=== PATIENT | male | born 1960 | race Two or more races ===

== ENCOUNTER 2020-12-10 19:51 | Emergency (ER) | payer SELFPAY ==
[~2020-12-10] VITALS: Ht 180.3 cm; Wt 117.9 kg
[2020-12-10] MEDS ORDERED: cloNIDine HCL 0.1 MG TAB PO ONE (20:00)
[2020-12-10 23:03] VITALS: BP 151/76
== END 2020-12-10 23:07 | disposition home or self-care (01) ==
LOC: ER 19:51
DX: M19.171 Post-traumatic osteoarthritis, right ankle and foot (principal); I10 Essential (primary) hypertension; M1A.3410 Chronic gout due to renal impairment, right hand, without tophus (tophi); I87.2 Venous insufficiency (chronic) (peripheral); F12.10 Cannabis abuse, uncomplicated
CPT/HCPCS: 73120; 73630

== ENCOUNTER 2024-08-06 13:20 | Inpatient (IN) | payer MEDICAID, OTHER ==
[~2024-08-06] VITALS: Ht 167.6 cm; Wt 113.1 kg
--- NOTE | 2024-08-06 13:37 | ED.PDOC ---
History of Present Illness HPI Comments 64-year-old male with no reported PMHx presents with a chief complaint of confusion, forgetfulness, and slurred speech for the past x 2 days. Patients daughter reports that patient has been having neurological issues for the past x 2 days. Denies any head injuries or trauma recently. Patient and daughter are poor historians and report no past medical history. Patient is hard to understand secondary to the slurred speech. Time Seen by MD: 13:31 Primary Care Provider: NONE Reviewed Notes: Nurses Notes, Medications, Allergies Allergies: Coded Allergies: NO KNOWN ALLERGIES (Unverified , 12/10/20) Information Source: Patient, Relative (Child) Mode of Arrival: Ambulatory Severity: Moderate Timing: Days Duration: Since onset Prehospital treatment: None Past Medical History PAST MEDICAL HISTORY: Denies Surgical History: Denies all surgeries Family History Family History: Unknown Social History Smoker: Non-Smoker Alcohol: Heavy Drugs: Marijuana Lives In: Home Constitutional: denies: chills, diaphoresis, fatigue, fever, malaise, sweats, weakness, others EENTM: denies: blurred vision, double vision, ear bleeding, ear discharge, ear drainage, ear pain, ear ringing, eye pain, eye redness, hearing loss, mouth pain, mouth swelling, nasal discharge, nose bleeding, nose congestion, nose pain, photophobia, tearing, throat pain, throat swelling, voice changes, others Respiratory: denies: cough, hemoptysis, orthopnea, SOB at rest, shortness of breath, SOB with excertion, stridor, wheezing, others Cardiovascular: denies: chest pain, dizzy spells, diaphoresis, Dyspnea on exertion, edema, irregular heart beat, left arm pain, lightheadedness, palpitations, PND, syncope, others Gastrointestinal: denies: abdomen distended, abdominal pain, blood streaked bowels, constipated, diarrhea, dysphagia, difficulty swallowing, hematemesis, melena, nausea, poor appetite, poor fluid intake, rectal bleeding, rectal pain, vomiting, others Genitourinary: denies: burning, dysuria, flank pain, frequency, hematuria, incontinence, penile discharge, penile sore, pain, testicle pain, testicle swelling, urgency, others Neurological: reports: speech problems (SLURRED SPEECH), others (CONFUSION; FORGETFULLNESS); denies: dizziness, fainting, headache, left sided numbness, left sided weakness, numbness, paresthesia, pre-existing deficit, right sided numbness, right sided weakness, seizure, tingling, tremors, weakness Musculoskeletal: denies: back pain, gout, joint pain, joint swelling, muscle pain, muscle stiffness, neck pain, others Integumetry: denies: bruises, change in color, change in hair/nails, dryness, laceration, lesions, lumps, rash, wounds, others Allergic/Immunocompromised: denies: Difficulty Healing, Frequent Infections, Hives, Itching, others Hematologic/Lymphatic: denies: anemia, blood clots, easy bleeding, easy bruising, swollen glands, others Endocrine: denies: excessive hunger, excessive sweating, excessive thirst, excessive urination, flushing, intolerance to cold, intolerance to heat, unexplained weight gain, unexplained weight loss, others Psychiatric: denies: anxiety, bipolar disorder, depression, hopeless, panic disorder, schizophrenia, sleepless, suicidal, others All Other Systems: Reviewed and Negative Physical Exam General Appearance: Moderate Distress HEENT: Normal ENT Inspection, Pharynx Normal, TMs Normal Neck: Full Range of Motion, Non-Tender, Normal, Normal Inspection Respiratory: Chest Non-Tender, Lungs Clear, No Accessory Muscle Use, No Respiratory Distress, Normal Breath Sounds Cardiovascular: No Edema, No JVD, No Murmur, No Gallop, Normal Peripheral Pulses, Regular Rate/Rhythm Breast Exam: Deferred Gastrointestinal: No Organomegaly, Non Tender, No Pulsatile Mass, Normal Bowel Sounds, Soft Genitalia: Deferred Pelvic: Deferred Rectal: Deferred Extremities: No calf tenderness, Normal capillary refill, No pedal edema Musculoskeletal : Apperance: Normal Neurologic: Alert, 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 Was a procedure done?: No EKG EKG : Pulse Rate (adult): 77 Anthon: Normal Hypertrophy: LAE, LVH Differential Dx Considerations may include: Hepatic encephalopathy, CVA, generalized weakness, electrolyte imbalance X-Ray, Labs, Meds, VS Vital Signs Date Time Temp Pulse Resp B/P (MAP) Pulse Ox O2 Delivery O2 Flow Rate FiO2 08/06/24 14:43 98.9 74 16 148/91 (110) 95 Lab Test 08/06/24 14:11 08/06/24 13:47 Range/Units White Blood Count 7.9 4.4-10.8 10^3/uL Red Blood Count 4.79 4.5-5.90 10^6/uL Hemoglobin 15.5 13.5-17.5 g/dL Hematocrit 45.2 41.0-53.0 % Mean Corpuscular Volume 94.4 80.0-100.0 fL Mean Corpuscular Hemoglobin 32.4 H 28.0-32.0 pg Mean Corpuscular Hemoglobin Concent 34.4 32.0-36.0 g/dL Red Cell Distribution Width 13.7 11.8-14.3 % Platelet Count 209 140-450 10^3/uL Mean Platelet Volume 8.7 6.9-10.8 fL Neutrophils (%) (Auto) 69.2 37.0-80.0 % Lymphocytes (%) (Auto) 17.6 10.0-50.0 % Monocytes (%) (Auto) 9.4 0.0-12.0 % Eosinophils (%) (Auto) 2.9 0.0-7.0 % Basophils (%) (Auto) 0.9 0.0-2.0 % Neutrophils # (Auto) 5.5 1.6-8.6 10 ^3/uL Lymphocytes # (Auto) 1.4 0.4-5.4 10 ^3/uL Monocytes # (Auto) 0.7 0-1.3 10 ^3/uL Eosinophils # (Auto) 0.2 0-0.8 10 ^3/uL Basophils # (Auto) 0.1 0-0.2 10 ^3/uL Nucleated Red Blood Cells 0.1 % Prothrombin Time 11.6 9.3-11.8 sec Prothrombin Time INR 1.11 0.9-1.15 Activated Partial Thromboplast Time 27.8 24.5-34.5 SEC Sodium Level 141 136-145 mmol/L Potassium Level 3.9 3.5-5.1 mmol/L Chloride Level 107 98-107 mmol/L Carbon Dioxide Level 25 20-31 mmol/L Anion Gap 9 5-15 Blood Urea Nitrogen 28 H 9-23 mg/dL Creatinine 1.93 H 0.700-1.30 mg/dL Glomerular Filtration Rate Calc 39 >90 mL/min BUN/Creatinine Ratio 14.5 10.0-20.0 Serum Glucose 115 H 74-106 mg/dL Calcium Level 9.4 8.7-10.4 mg/dL Total Bilirubin 0.8 0.2-1.0 mg/dL Aspartate Amino Transferase (AST) 46 H 13-40 U/L Alanine Aminotransferase (ALT) 30 7-40 U/L Alkaline Phosphatase 88 46-116 U/L Ammonia 35 H 11-32 umol/L Total Protein 7.6 5.7-8.2 g/dL Albumin 4.3 3.2-4.8 g/dL Plasma/Serum Blood Alcohol 3.8 <10 mg/dL POC Glucose 122 H 70-106 mg/dl Abdomen/Pelvis CT Scan Impression: 1. Subtle heterogeneous hypodense nodular area in the posterior right hepatic lobe measuring 5.2 cm. A hepatic lesion is not excluded. Further evaluation with multiphase CT or MRI abdomen with contrast is recommended. 2. Distal colon diverticulosis. 3. Prostatomegaly. Poorly filled bladder demonstrates circumferential wall thickening likely related to chronic outlet obstruction. 4. Fat containing umbilical hernia. The patient was ammonia level is elevated at 35. The CBC is within normal limits The chemistry panel is within normal limits At this time, the patient was being admitted to the hospitalist The patient was diagnosis is hepatic encephalopathy Images Reviewed?: Images reviewed and evaluated by me Time of 1ST Reevaluation: 14:01 Reevaluation 1ST: Unchanged Patient Education/Counseling: Diagnosis, Treatment, Prognosis Family Education/Counseling: Diagnosis, Treatment, Prognosis Departure 1 Departure Time of Disposition: 15:19 Impression: Primary Impression: Hepatic encephalopathy Additional Impression: Acute abdominal pain Disposition: 09 ADMITTED INPATIENT Admit to: [facility] Condition: Fair Critical Care Note Critical Care Time?: Yes (35 min-critical care time only) Stability Stability form required: Yes Unstable for transfer: Telemetry monitoring (Telemetry monitoring required), ED Physician Assesment (Clinical assesment) Heart Score Heart Score: Heart Score Response (Comments) Value History N/A 0 EKG N/A 0 Age N/A 0 Risk Factors N/A 0 Troponin N/A 0 Total 0 I personally scribed for JENNIFER DOLAN MD ([email or web address]) on 08/06/24 at 13:37. Electronically submitted by Fred Martines ([email or web address]). I personally scribed for JENNIFER DOLAN MD ([email or web address]) on 08/06/24 at 14:27. Electronically submitted by Fred Martines ([email or web address]). JENNIFER DOLAN MD Aug 06, 2024 13:37
--- NOTE | 2024-08-06 14:25 | DVH ---
CT ABDOMEN AND PELVIS WITHOUT CONTRAST CLINICAL HISTORY: aloc TECHNIQUE: Multiple contiguous axial images of the abdomen and pelvis without intravenous contrast. The images were reformatted degenerate coronal and sagittal reconstructions. All CT scans at this medical facility are performed using dose modulation techniques as appropriate t o a performed exam including the following:Automated exposure control was utilized; adjustment of the MA and/or KV according to patient size; and use of iterative reconstruction technique. Radiation Dose Information: CT Dose: CTDI volume is 26 mGy. Dose-length product is 1469 mGy*cm Comparison: None FINDINGS: Evaluation of the abdomen and pelvis is limited without intravenous contrast. There is a subtle heterogeneous hypodense nodular area in the posterior right hepatic lobe measuring 5.2 cm ( axial image 22). A hepatic lesion is not excluded. The gallbladder, pancreas, kidneys, adrenal glands, and spleen appear within normal limits. There is a fat containing umbilical hernia with a neck measuring 3.3 cm in transverse diameter. There is no gross evidence of abdominal lymphadenopathy. There is no free fluid or free air. The stomach grossly appears unremarkable. The small and large bowel loops demonstrate normal caliber . There are scattered diverticula in the distal colon without evidence of acute diverticulitis. The abdominal aorta and IVC appear within normal limits. The prostate gland appears prominent in size. Bladder is poorly filled and demonstrates circumferenti al wall thickening likely related to chronic outlet obstruction.. There is no gross evidence of a pe lvic mass. There is no free fluid collection. Lung bases are clear. There is no acute osseous abnormality. IMPRESSION: 1. Subtle heterogeneous hypodense nodular area in the posterior right hepatic lobe measuring 5.2 cm. A hepatic lesion is not excluded. Further evaluation with multiphase CT or MRI abdomen with contras t is recommended. 2. Distal colon diverticulosis. 3. Prostatomegaly. Poorly filled bladder demonstrates circumferential wall thickening likely related to chronic outlet obstruction. 4. Fat containing umbilical hernia. HS:Y
[2024-08-06 14:41] LABS: Basophils # (auto) 0.1 10 ^3/uL (0-0.2); Basophils % (auto) 0.9 % (0.0-2.0); Eosinophils # (auto) 0.2 10 ^3/uL (0-0.8); Eosinophils % (auto) 2.9 % (0.0-7.0); Hematocrit 45.2 % (41.0-53.0); Hemoglobin 15.5 g/dL (13.5-17.5); Lymphocytes # (auto) 1.4 10 ^3/uL (0.4-5.4); Lymphocytes % (auto) 17.6 % (10.0-50.0); Mean Corpuscular Hemoglobin 32.4 pg (28.0-32.0); Mean Corpuscular Hgb Conc. 34.4 g/dL (32.0-36.0); Mean Corpuscular Volume 94.4 fL (80.0-100.0); Monocytes # (auto) 0.7 10 ^3/uL (0-1.3); Monocytes % (auto) 9.4 % (0.0-12.0); Neutrophils # (auto) 5.5 10 ^3/uL (1.6-8.6); Neutrophils % (auto) 69.2 % (37.0-80.0); Nucleated Red Blood Cells % 0.1 %; Platelet Count (auto) 209 10^3/uL (140-450); Red Blood Cells 4.79 10^6/uL (4.5-5.90); Red Cell Distribution Width 13.7 % (11.8-14.3); White Blood Cell 7.9 10^3/uL (4.4-10.8)
[2024-08-06 14:50] LABS: Alanine Aminotransferase 30 U/L (7-40); Albumin 4.3 g/dL (3.2-4.8); Alkaline Phosphatase 88 U/L (46-116); Anion Gap 9 (5-15); BUN/Creatinine Ratio 14.5 (10.0-20.0); Blood Alcohol 3.8 mg/dL (<10); Calcium 9.4 mg/dL (8.7-10.4); Carbon Dioxide 25 mmol/L (20-31); Potassium 3.9 mmol/L (3.5-5.1); Sodium 141 mmol/L (136-145)
[2024-08-06 14:51] LABS: Bilirubin, Total 0.8 mg/dL (0.2-1.0); Total Protein 7.6 g/dL (5.7-8.2)
[2024-08-06 14:53] LABS: Aspartate Aminotransferase 46 U/L (13-40); Blood Urea Nitrogen 28 mg/dL (9-23); Chloride 107 mmol/L (98-107); Glucose 115 mg/dL (74-106)
[2024-08-06 15:13] LABS: INR 1.11 (0.9-1.15); Partial Thromboplastin Time 27.8 SEC (24.5-34.5); Prothrombin Time 11.6 sec (9.3-11.8)
--- NOTE | 2024-08-06 15:37 | ECG ---
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
[2024-08-06 20:43] LABS: Cannabinoid Screen, Urine Pos (NEGATIVE)
[2024-08-06 20:44] LABS: Amphetamine Screen, Urine Neg (NEGATIVE); Barbiturate Scree,Urine Neg (NEGATIVE); Benzodiazephine Screen, Urine Neg (NEGATIVE); Cocaine Screen, Urine Neg (NEGATIVE); Opiate Scree,Urine Neg (NEGATIVE); Phencyclidine Screen, Urine Neg (NEGATIVE)
--- NOTE | 2024-08-06 23:28 | DVHHPRES ---
History of Present Illness Resident Creating Document: HIPOLITO LY RESDIENT History of Present Illness This is a 62-year-old male with past medical history of gout, hypertension came to the hospital due to confusion and slurred speech since 2 days. He also reports right leg pain, blurry vision, and hearing voice of his departed brother. 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 He also complained of auditory hallucination (hears departed bothers speak) and hard time finding words. Pat ient denies fever, nausea, vomiting, chest pain, shortness of breath, any recent injury or trauma, or any motor or sensory deficits. PMHx: Gout and hypertension Social history: Denies smoking, heavy alcohol use disorder, denies any other drug use Home medication: Ibuprofen for the knee pain Allergic history: No known allergies Review of Systems Review of Systems General: patient denies fever, fatigue, weaknes, sweating, any recent changes in appetite and weight HEENT: No headaches, visiual changes, hearing loss, tinnitus, nasal congestion and discharge, and sore throat. Cardiovascular: Denies chest pain, palpitations, dyspnea on exertion, orthopnea, or claudication. Respiratory: No cough, and wheezing. Gastrointestinal: Denies nausea, vomiting, dysphagia, odynophagia, heartburn, abdominal pain, flatulence, bloating, diarrhea, constipation, change in stool, or blood in stool. Genitourinary: No dysuria, hematuria, discharge, frequency, urgency, nocturia, incontinence, and urinary retention. Endocrine: No heat or cold intolerance, polydipsia, polyuria, and polyphagia. Neurological: No dizziness, extremity weakness and numbness, tremors, gait disturbance, seizures, and memory impairment. Psychiatric: Reports auditory hallucination Musculoskeletal: Reports bilateral lower limb pain more on the right side Skin: No rashes, itching, skin lesion, changes in hair, nail, skin texture and breast. Hematologic/Lymphatic: Denies easy bruising, bleeding tendencies, or lymph node enlargement. Allergies: Coded Allergies: NO KNOWN ALLERGIES (Unverified , 12/10/20) Exam Vital Signs Vital Signs Date Time Temp Pulse Resp B/P (MAP) Pulse Ox O2 Delivery O2 Flow Rate FiO2 08/06/24 18:19 98.4 77 18 151/94 (113) 98 98.4 Exam General Appearance: Alert, confused, oriented to the place and person, disoriented to time HEENT: Atraumatic, PERRLA, EOMI, Mucous membrane moist/pink Respiratory: Clear to auscultation, Normal air movement Cardiovascular: Regular rate, Normal S1, Normal S2, No murmurs, no chest wall tenderness Abdominal: Normal bowel sounds, Soft, No tenderness, No hepatospenomegaly, No masses Extremities: Bilateral pedal edema with right knee swollen and tender to pal pation with decreased range of motion, bilateral 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 Skin: No rashes, No breakdown, No significant lesion Neuro: Normal gait, Normal speech, Strength at 5/5 X4 ext, Normal tone, S ensation intact, Cranial nerves 3-12 NL, Reflexes 2+ Psych/Mental Status: Mental status NL, Mood NL Labs/Xrays Labs Test 08/06/24 17:16 08/06/24 14:11 08/06/24 13:47 Range/Units Urine Opiates Screen Neg NEGATIVE Urine Fentanyl Screen Neg NEGATIVE Urine Barbiturates Screen Neg NEGATIVE Urine Phencyclidine Screen Neg NEGATIVE Urine Amphetamines Screen Neg NEGATIVE Urine Benzodiazepines Screen Neg NEGATIVE Urine Cocaine Screen Neg NEGATIVE Urine Cannabinoids Screen Pos NEGATIVE White Blood Count 7.9 4.4-10.8 10^3/uL Red Blood Count 4.79 4.5-5.90 10^6/uL Hemoglobin 15.5 13.5-17.5 g/dL Hematocrit 45.2 41.0-53.0 % Mean Corpuscular Volume 94.4 80.0-100.0 fL Mean Corpuscular Hemoglobin 32.4 H 28.0-32.0 pg Mean Corpuscular Hemoglobin Concent 34.4 32.0-36.0 g/dL Red Cell Distribution Width 13.7 11.8-14.3 % Platelet Count 209 140-450 10^3/uL Mean Platelet Volume 8.7 6.9-10.8 fL Neutrophils (%) (Auto) 69.2 37.0-80.0 % Lymphocytes (%) (Auto) 17.6 10.0-50.0 % Monocytes (%) (Auto) 9.4 0.0-12.0 % Eosinophils (%) (Auto) 2.9 0.0-7.0 % Basophils (%) (Auto) 0.9 0.0-2.0 % Neutrophils # (Auto) 5.5 1.6-8.6 10 ^3/uL Lymphocytes # (Auto) 1.4 0.4-5.4 10 ^3/uL Monocytes # (Auto) 0.7 0-1.3 10 ^3/uL Eosinophils # (Auto) 0.2 0-0.8 10 ^3/uL Basophils # (Auto) 0.1 0-0.2 10 ^3/uL Nucleated Red Blood Cells 0.1 % Prothrombin Time 11.6 9.3-11.8 sec Prothrombin Time INR 1.11 0.9-1.15 Activated Partial Thromboplast Time 27.8 24.5-34.5 SEC Sodium Level 141 136-145 mmol/L Potassium Level 3.9 3.5-5.1 mmol/L Chloride Level 107 98-107 mmol/L Carbon Dioxide Level 25 20-31 mmol/L Anion Gap 9 5-15 Blood Urea Nitrogen 28 H 9-23 mg/dL Creatinine 1.93 H 0.700-1.30 mg/dL Glomerular Filtration Rate Calc 39 >90 mL/min BUN/Creatinine Ratio 14.5 10.0-20.0 Serum Glucose 115 H 74-106 mg/dL Calcium Level 9.4 8.7-10.4 mg/dL Total Bilirubin 0.8 0.2-1.0 mg/dL Aspartate Amino Transferase (AST) 46 H 13-40 U/L Alanine Aminotransferase (ALT) 30 7-40 U/L Alkaline Phosphatase 88 46-116 U/L Ammonia 35 H 11-32 umol/L Total Protein 7.6 5.7-8.2 g/dL Albumin 4.3 3.2-4.8 g/dL Plasma/Serum Blood Alcohol 3.8 <10 mg/dL POC Glucose 122 H 70-106 mg/dl Assessment/Plan Assessment/Plan Acute metabolic encephalopathy, likely due to ischemic stroke Acute ischemic stroke Head CT scan shows acute or subacute infarct in the left thalamic Check lipid profile, carotid Doppler, and echoecoho Consult neurology Aspirin Lipitor Gout flare-up Colchicine Possible VAL, likely VMN creatinine is raised at 1.93, no baseline available FENa and IV fluid Alcohol use disorder Abdominal CT scan shows subtle heterogeneous hypodense nodular area in right hepatic lobe, 5.2 cm recommended MRI or multiphase CT Umbilical hernia, fat containing, CT finding Distal colon diverticulosis, CT finding History of hypertension Cannabinoids use disorder DIET: Cardiac diet DVT PROPHYLAXIS: Lovenox CODE STATUS: Goal of care discussed for more than 21 minutes, full code DISPOSITION: Telemetry Patient's status and paln discussed with the patient and the patient's the bedside. Case discussed with Dr. Machado. Plan discussed with: Patient, Other (RN) My Orders Orders - HIPOLITO LY RESDIJAMES Procedure Category Date Status Time Admit ADMIT 08/06/24 Verified 23:27 Stat Ekg For Chest YARELIS 08/06/24 Verified Pain 23:27 Notify Md Of Changes [facility] 08/06/24 Verified From Base 23:27 Date of Service: Aug 07, 2024 Billing Provider: MAILE MACHADO MD Common Visit Codes: 78584-[id number] INP/OBS CARE (HIGH) HIPOLITO LY RESDIENT Aug 06, 2024 23:28 MAILE MACHADO MD Aug 10, 2024 14:47
[2024-08-07] MEDS ORDERED: LORazepam 2MG/ML-1ML VIAL IV PRN ×2 (02:45→11:00)
[2024-08-07 03:39] VITALS: PULSE 60; RESP 16; O2SAT 97
[2024-08-07] MEDS: SODIUM CHLORIDE 0.9% 500 ML IV ONE (04:15)
[2024-08-07] MEDS: COLCHICINE 0.6 MG CAP PO ONE (04:15)
[2024-08-07] MEDS: THIAMINE 100mg/ml INJ (200mg/2ml VIAL) IV ONE (04:15)
[2024-08-07] MEDS: FOLIC ACID 1 MG in D5W 5% 50 ML INJ ONE (04:16)
[2024-08-07 04:38] LABS: Basophils # (auto) 0.1 10 ^3/uL (0-0.2); Eosinophils # (auto) 0.3 10 ^3/uL (0-0.8); Eosinophils % (auto) 4.5 % (0.0-7.0); Hematocrit 43.2 % (41.0-53.0); Hemoglobin 15.2 g/dL (13.5-17.5); Lymphocytes # (auto) 1.5 10 ^3/uL (0.4-5.4); Lymphocytes % (auto) 19.1 % (10.0-50.0); Mean Corpuscular Hemoglobin 33.3 pg (28.0-32.0); Mean Corpuscular Hgb Conc. 35.1 g/dL (32.0-36.0); Monocytes # (auto) 0.7 10 ^3/uL (0-1.3); Monocytes % (auto) 9.6 % (0.0-12.0); Neutrophils % (auto) 65.8 % (37.0-80.0); Platelet Count (auto) 216 10^3/uL (140-450); Red Blood Cells 4.55 10^6/uL (4.5-5.90); Red Cell Distribution Width 13.6 % (11.8-14.3); White Blood Cell 7.7 10^3/uL (4.4-10.8)
[2024-08-07 04:46] LABS: Alanine Aminotransferase 28 U/L (7-40); Albumin 4.5 g/dL (3.2-4.8); Alkaline Phosphatase 86 U/L (46-116); Anion Gap 7 (5-15); Aspartate Aminotransferase 37 U/L (13-40); Calcium 9.5 mg/dL (8.7-10.4); Carbon Dioxide 26 mmol/L (20-31); Chloride 103 mmol/L (98-107); Cholesterol 151 mg/dL (< 200); Magnesium 2.3 mg/dL (1.6-2.6); Phosphorus 3.8 mg/dL (2.4-5.1); Sodium 136 mmol/L (136-145); Triglycerides 112 mg/dL (< 150)
[2024-08-07 04:47] LABS: Bilirubin, Total 0.6 mg/dL (0.2-1.0); Total Protein 8.1 g/dL (5.7-8.2)
[2024-08-07 04:59] LABS: Blood Urea Nitrogen 27 mg/dL (9-23); Glucose 110 mg/dL (74-106); HDL Cholesterol 36 mg/dL (40-59); LDL Cholesterol 105 mg/dL (< 100); Potassium 3.4 mmol/L (3.5-5.1)
--- NOTE | 2024-08-07 05:05 | DVH ---
EXAM: CT HEAD WITHOUT CONTRAST INDICATION: ALOC TECHNIQUE: CT of the head without intravenous contrast. Coronal and sagittal reformatted images are submitted. Radiation Dose : 1. Head: CT Dose: CTDI volume is 62.7 mGy. Dose-length product is 1128.5 mGy*cm The dose indicators for CT are the volume Computed Tomography (CT) Dose Index (CTDIvol) and the Dose Length Product (DLP), and are measured in units of mGy and mGy-cm, respectively. These indicators are not patient dose, but values generated from the CT scanner acquisition factors. The report includes radiation exposure data for exposures received during this examination. All CT scans at this medical facility are performed using dose modulation techniques as appropriate to a performed exam including the following: Automated exposure control was utilized; adjustment of the MA and/or KV according to patient size; and use of iterative reconstruction technique. COMPARISON: None FINDINGS: There is no evidence of acute intracranial hemorrhage, extra-axial collection, mass effect, midline s hift, herniation or hydrocephalus. There are periventricular and subcortical hypodensities, nonspecific, but likely reflecting sequelae of chronic microvascular ischemic changes. The ventricles, sulci and cisterns are age appropriate. The walters-white differentiation is intact. There is a hypodensity in the left thalamus. Mastoid air cells are clear. There is opacification of the left maxillary sinus and ethmoid air cells . No depressed calvarial fracture. The surrounding soft tissues are unremarkable. IMPRESSION: 1. Acute or subacute infarct in the left thalamus. 2. No evidence of acute intracranial hemorrhage.
[2024-08-07] MEDS: ASPirin 81 mg TAB PO ONE (05:15)
[2024-08-07] MEDS: ENOXAPARIN SOD 40 MG/0.4 ML SYRINGE SC ONE (06:15)
--- NOTE | 2024-08-07 06:46 | DVH ---
CHEST RADIOGRAPH Indication: Pneumionia Technique: Single frontal view of the chest was obtained Comparison: None FINDINGS: Lines and Tubes: None Lungs: No focal consolidation. Pleura: No effusion. No pneumothorax. Cardiomediastinal contours: Cardiomegaly. Bones: No acute osseous abnormality. IMPRESSION: 1. Cardiomegaly. 2. No focal airspace disease.
[2024-08-07 06:53] LABS: Urine Bacteria None Seen /hpf (None Seen)
[2024-08-07 07:10] LABS: Urine Blood Negative /uL (Negative); Urine Clarity Clear (Clear); Urine Color Yellow (Yellow); Urine Hyaline Cast FEW /lpf (0 - 2); Urine Protein, UAD 2+ (Negative); Urine Squamous Epithelial Cell FEW /hpf (<5); Urine Urobilinogen Normal (Negative)
[2024-08-07 07:19] LABS: Creatinine, Urine 187.1 mg/dL (30.0-125.0)
[2024-08-07] MEDS: ATORVASTATIN 20 MG TAB PO ONE (07:49)
[2024-08-07] MEDS: POTASSIUM EFFERVESENT TAB 25 MEQ PO ONE (08:48)
--- NOTE | 2024-08-07 09:16 | DVH ---
Bilateral lower extremity venous duplex Clinical History: Pedal Edema Comparison: None Technique: Duplex Doppler evaluation of the deep venous systems of both lower extremities from the co mmon femoral veins to the popliteal veins including color Doppler and spectral/pulsed waveform analys is was performed. Findings: Suboptimal exam due to body habitus. RIGHT SIDE: The common femoral vein demonstrates appropriate compressibility and waveform variability. There is compressibility/patency of the great saphenous vein at the proximal thigh. The femoral vein demonstrates appropriate compressibility and waveform variability. The deep femoral vein demonstrates appropriate compressibility and waveform variability. The popliteal vein demonstrates appropriate compressibility and waveform variability. There is color flow at the tibioperoneal trunk and in the posterior tibial vein. LEFT SIDE: The common femoral vein demonstrates appropriate compressibility and waveform variability. There is compressibility/patency of the great saphenous vein at the proximal thigh. The femoral vein demonstrates appropriate compressibility and waveform variability. The deep femoral vein demonstrates appropriate compressibility and waveform variability. The popliteal vein demonstrates appropriate compressibility and waveform variability. There is color flow at the tibioperoneal trunk and in the posterior tibial vein. Impression: 1. No right or left femoropopliteal venous thrombosis.
--- NOTE | 2024-08-07 09:29 | DVHINCON2 ---
Date of service: Aug 07, [address] Mayer Reason for Consultation Ischemic stroke History of Present Illness Mr. Duarte is a 64 years old right-handed gentleman with a history of obesity, he was brought to the hospital on 08/06/2024 with a chief company of confusion, forgetfulness and slurred speech for two days. At that time, the patient was is awake, oriented to person, place, he knows year, he knows the month with some clues, he is a poor historian, no family is available for the history, the information is obtained from chart review, talking to his nurse He tells me he came to the hospital because of pain in the knees, especially right knee. He was admitted a history of heavy alcohol consumption. Apparently, the family noticed the patient was confused, forgetful and with slurred speech for two days before he was taken to the hospital. No reason history of injury or trauma. [phone] no answer, no answer UDS, 08/06/2024: Cannabinoids Plasma alcohol, 08/06/2024: 3.8 Urinalysis, 08/07/2024: WBC: not seen, urine leukocyte esterase: Negative CBC, 08/07/2024: Unremarkable PT/INR/PTT, 08/06/2024: 11.6/1.11/27.6 BUN/CR, 08/06/2024: 28/1.93, 08/07/2024: 27/2.06 HGB A1c, 08/07/2024: 5.7 TBI/AST/ALT/AP, 08/06/2024: 0.8/46/30/80 Ammonia, 08/06/2024: 35 TG/HDL/LDL/HDL, 08/07/2024: 112/151/105/36 CT head, 08/07/2024: 1. Acute or subacute infarct in the left thalamus. 2. No evidence of acute intracranial hemorrhage. Past Medical History Obesity, arthritis Past Surgical History No surgeries Family History Diabetes, alcohol problem Social History He is not tobacco smoker, he denies a history of drug abuse, he was a heavy alcohol drinker Allergies: Coded Allergies: NO KNOWN ALLERGIES (Unverified , 12/10/20) Current Medications Current Medications Medications (Trade) Dose Ordered Sig/Allie Route PRN Reason Start Time Stop Time Status Last Admin Thiamine HCl 100 mg DAILY IV 08/08/24 10:00 08/07/24 06:40 DC Folic Acid 1 mg/ Dextrose 50.2 ml @ 200.8 mls/ hr DAILY INJ 08/08/24 10:00 Colchicine (Colcrys) 0.6 mg Q12HR PO 08/07/24 22:00 Lorazepam (Ativan Inj) 1 mg Q2HPRN PRN IV ETOH-SEE PROTOCOL 08/07/24 02:45 Aspirin 81 mg DAILY PO 08/07/24 10:00 Atorvastatin Calcium (Lipitor) 80 mg HS PO 08/07/24 22:00 Enoxaparin Sodium (Lovenox) 40 mg DAILY SC 08/08/24 10:00 Thiamine HCl 500 mg/Dextrose 55 ml @ 100 mls/hr TID IV 08/07/24 14:00 08/09/24 06:32 Review of Systems As above, the other systems are negative Vital Signs Vital Signs Date Time Temp Pulse Resp B/P (MAP) Pulse Ox O2 Delivery O2 Flow Rate FiO2 08/07/24 07:59 158/91 (113) 08/07/24 07:44 97.4 61 16 97 97.4 08/07/24 03:39 Room Air* 0 21 Physical Exam GENERAL EXAM: General: the patient is well developed and nourished. No acute distress. HEENT: Normocephalic, neck is supple, no carotid bruits. No mass. RESPIRATORY: Normal respiratory effort with symmetrical lung expansion. Lungs clear to auscultation. CARDIOVASCULAR: Regular rate and rhythm with no murmurs. S1, S2. ABDOMEN: Soft, nontender, normal bowel sound MUSCULOSKELETAL EXAM: Tenderness in the right knee, bilateral pitting edema in the legs NEUROLOGICAL: MENTAL STATUS: Awake and alert. Oriented to person, place, good social skills SPEECH, LANGUAGE, HIGHER CORTICAL FUNCTION: no aphasia or dysathria. CRANIAL NERVES: #2: Intact visual nguyen to confrontation. The optic discs were sharp. No nystagmus. #5: Facial sensation intact in all three divisions bilaterally. Mandibular strength intact. #7: Facial muscles symmetrical and strength intact. #8: Hearing grossly normal to voice. #9,10: Uvula and soft palate rise in the midline. Swallow and voice are normal. #11: Trapezius and sternomastoid strength intact bilaterally. #12: Tongue midline. No fasciculations or atrophy. SENSATION: Sensation to touch and pinprick is normal. MOTOR: Normal tone in the upper and lower extremity. Normal muscle bulk. No fasciculations. No abnormal movements or posturing. Muscle strength of the major groups in the upper extremities is 5/5. Muscle strength of the major groups in the lower extremities is 5/5. REFLEXES: Deep tendon reflexes normal and symmetrical. No pathological reflexes. CEREBELLAR/COORDINATION: Finger to nose is normal bilaterally. GAIT/STATION: deferred. Labs/Diagnostic Data Labs Test 08/07/24 06:45 08/07/24 04:06 08/06/24 17:16 08/06/24 14:11 Range/Units Urine Color Yellow Yellow Urine Clarity Clear Clear Urine pH 6.0 5.0-9.0 Urine Specific [place] 1.020 1.001-1.035 Urine Protein 2+ H Negative Urine Ketones Negative Negative Urine Blood Negative Negative /uL Urine Nitrite Negative Negative Urine Bilirubin Negative Negative Urine Urobilinogen Normal Negative mg/dL Urine Leukocyte Esterase Negative Negative /uL Urine RBC None seen 0 - 3 /hpf Urine Microscopic WBC 0-3 /HPF Urine Squamous Epithelial Cells Few <5 /hpf Urine Bacteria None seen None Seen /hpf Urine Hyaline Casts Few 0 - 2 /lpf Urine Creatinine 187.10 H 30.0-125.0 mg/dL Urine Sodium 16 L 40-220 mmol/L Urine Glucose Normal Normal mg/dL White Blood Count 7.7 4.4-10.8 10^3/uL Red Blood Count 4.55 4.5-5.90 10^6/uL Hemoglobin 15.2 13.5-17.5 g/dL Hematocrit 43.2 41.0-53.0 % Mean Corpuscular Volume 95.0 80.0-100.0 fL Mean Corpuscular Hemoglobin 33.3 H 28.0-32.0 pg Mean Corpuscular Hemoglobin Concent 35.1 32.0-36.0 g/dL Red Cell Distribution Width 13.6 11.8-14.3 % Platelet Count 216 140-450 10^3/uL Mean Platelet Volume 8.9 6.9-10.8 fL Neutrophils (%) (Auto) 65.8 37.0-80.0 % Lymphocytes (%) (Auto) 19.1 10.0-50.0 % Monocytes (%) (Auto) 9.6 0.0-12.0 % Eosinophils (%) (Auto) 4.5 0.0-7.0 % Basophils (%) (Auto) 1.0 0.0-2.0 % Neutrophils # (Auto) 5.0 1.6-8.6 10 ^3/uL Lymphocytes # (Auto) 1.5 0.4-5.4 10 ^3/uL Monocytes # (Auto) 0.7 0-1.3 10 ^3/uL Eosinophils # (Auto) 0.3 0-0.8 10 ^3/uL Basophils # (Auto) 0.1 0-0.2 10 ^3/uL Nucleated Red Blood Cells 0.0 % Sodium Level 136 # 136-145 mmol/L Potassium Level 3.4 L 3.5-5.1 mmol/L Chloride Level 103 98-107 mmol/L Carbon Dioxide Level 26 20-31 mmol/L Anion Gap 7 5-15 Blood Urea Nitrogen 27 H 9-23 mg/dL Creatinine 2.08 H 0.700-1.30 mg/dL Glomerular Filtration Rate Calc 35 >90 mL/min BUN/Creatinine Ratio 13.0 10.0-20.0 Serum Glucose 110 H 74-106 mg/dL Hemoglobin A1c 5.7 <5.7 % A1C Calcium Level 9.5 8.7-10.4 mg/dL Phosphorus Level 3.8 2.4-5.1 mg/dL Magnesium Level 2.3 1.6-2.6 mg/dL Total Bilirubin 0.6 0.2-1.0 mg/dL Aspartate Amino Transferase (AST) 37 13-40 U/L Alanine Aminotransferase (ALT) 28 7-40 U/L Alkaline Phosphatase 86 46-116 U/L Ammonia 14 11-32 umol/L B-Type Natriuretic Peptide 65.17 0-100 pg/mL Total Protein 8.1 5.7-8.2 g/dL Albumin 4.5 3.2-4.8 g/dL Triglycerides Level 112 < 150 mg/dL Cholesterol Level 151 < 200 mg/dL LDL Cholesterol 105 H < 100 mg/dL HDL Cholesterol 36 L 40-59 mg/dL Urine Opiates Screen Neg NEGATIVE Urine Fentanyl Screen Neg NEGATIVE Urine Barbiturates Screen Neg NEGATIVE Urine Phencyclidine Screen Neg NEGATIVE Urine Amphetamines Screen Neg NEGATIVE Urine Benzodiazepines Screen Neg NEGATIVE Urine Cocaine Screen Neg NEGATIVE Urine Cannabinoids Screen Pos NEGATIVE Prothrombin Time 11.6 9.3-11.8 sec Prothrombin Time INR 1.11 0.9-1.15 Activated Partial Thromboplast Time 27.8 24.5-34.5 SEC Plasma/Serum Blood Alcohol 3.8 <10 mg/dL Test 08/06/24 13:47 Range/Units POC Glucose 122 H 70-106 mg/dl Assessment Acute mental status changes/confusion/slurred speech Metabolic encephalopathy Wernicke encephalopathy Partial complex seizure Stroke Acute/subacute stroke per CT scan Alcoholism Plan/Recommendation Monitoring Supportive treatment Telemetry EEG Echocardiogram Carotid Doppler MR head Thiamine supplementation Folic acid supplementation Aspirin 81 mg daily Plavix 75 mg daily for 21 days Lipitor 40 mg daily We have discussed about alcohol problem Lifestyle/stroke with effect discussed More recommendation per clinical course Progress: Poor This medical document was created using an electronic medical record system with [employer] dictation system. Although this document has been carefully reviewed, there may still be some phonetic and typographical errors. These areas are purely typographical due to imperfections of the software programs, and do not reflect any compromise in the patient's medical care. Plan discussed with: Other FELIX GUTIERREZ MD Aug 07, 2024 09:29
--- NOTE | 2024-08-07 09:50 | DVH ---
Carotid Duplex Date: 08/07/2024 08:21 AM Clinical History: Stroke Comparison: None Technique: Duplex Doppler evaluation of the extracranial carotid and vertebral arteries including color Doppler and spectral/pulsed waveform analysis was performed. Findings: Velocities ratios and within normal limits. IMPRESSION: No hemodynamically significant stenosis noted in the right carotid system. No hemodynamically significant stenosis noted in the left carotid system. Reference: Radiology 2003; [id number]
[2024-08-07] MEDS: ASPirin 81 mg TAB PO SCH (10:36)
[2024-08-07] MEDS: ATORVASTATIN 20 MG TAB PO SCH (11:00)
[2024-08-07] MEDS ORDERED: INDOMETHACIN 25 MG CAP PO PRN (11:15)
[2024-08-07 11:51] LABS: Triglycerides 101 mg/dL (< 150)
[2024-08-07 11:52] LABS: LDL Cholesterol 99 mg/dL (< 100)
[2024-08-07 11:53] LABS: Cholesterol 143 mg/dL (< 200); HDL Cholesterol 33 mg/dL (40-59)
--- NOTE | 2024-08-07 12:48 | DVHPNRES ---
Progress Note Date Seen: Aug 07, 2024 Resident Creating Document: DALE GARCIA RESIDENT Medical Necessity Reason Pt with a Central, PICC or Fol: No Medical Necessity Reason Right knee pain Subjective Review of Systems This is a 62-year-old male with past medical history of gout, hypertension brought to ED due to right knee pain, confusion and slurred speech for two 2 days noticed by his brother. Patient mentioned that for the past few days, he has been having severe joint pains in her knees ( R>L). He also mentioned that he has not see a health care provide since 1992. Per patient's chart, patient has history of gout 30 years with recurrent flare-ups, with multiple tophi on bilateral upper limbs. He also complained of auditory hallucination (hears departed bothers speak) and hard time finding words. Patient denies fever, nausea, vomiting, chest pain, shortness of breath, any recent injury or trauma, or any motor or sensory deficits. Vitals reveal temperature 98.9 pulse 77 respiratory 16 and blood pressure 148/91, UA is unremarkable uric acid pending. CT of the head revealed 1. Acute or subacute infarct in the left thalamus. No evidence of acute intracranial hemorrhage. Carotid Doppler showec No hemodynamically significant stenosis noted in the right carotid system.No hemodynamically significant stenosis noted in the left carotid system. Venous Doppler revealed1. No right or left femoropopliteal venous thrombosis. Chest x-ray showed shows cardiomegaly.CT abdomen Subtle heterogeneous hypodense nodular area in the posterior right hepatic lobe measuring 5.2 cm. A hepatic lesion is not excluded.Distal colon diverticulosis. Prostatomegaly. Poorly filled bladder demonstrates circumferential wall thickening likely related to chronic outlet obstruction.Fat containing umbilical hernia. Constitutional: Denies fever no chills no feeling of malaise HEENT: Denies headache, ear pain, ear discharges, conjunctivitis, nasal discharge throat pain Cardiovascular: Denies chest pain, palpitation, orthopnea, PND, or pedal edema Respiratory: Denies shortness of breath, cough cough, sputum production, hemoptysis, GI: Denies abdominal pain, nausea, vomiting, diarrhea, hematemesis, hematochezia, : Denies frequency, urgency, hematuria, Endocrine: Denies unintentional weight gain or weight loss, feeling of hot flashes, Sudeep: Denies easy bruising, bleeding disorders, epistaxis Musculoskeletal: Denies joint pains, muscle aches Psych: No evidence of depression, dequan, suicidal ideation Objective vital signs Vital Sign Date Time Temp Pulse Resp B/P (MAP) Pulse Ox O2 Delivery O2 Flow Rate FiO2 08/07/24 07:59 158/91 (113) 08/07/24 07:44 97.4 61 16 97 97.4 08/07/24 03:39 Room Air* 0 21 medications Current Medications Medications Dose Ordered Sig/Allie Route Start Time Stop Time Status Last Admin Dose Admin Folic Acid 1 mg/ Dextrose 50.2 ml @ 200.8 mls/ hr DAILY INJ 08/08/24 10:00 Colchicine 0.6 mg Q12HR PO 08/07/24 22:00 Lorazepam 1 mg Q2HPRN PRN IV 08/07/24 02:45 Aspirin 81 mg DAILY PO 08/07/24 10:00 08/07/24 10:36 81 MG Enoxaparin Sodium 40 mg DAILY SC 08/08/24 10:00 Thiamine HCl 500 mg/Dextrose 55 ml @ 100 mls/hr TID IV 08/07/24 14:00 08/09/24 06:32 Atorvastatin Calcium 40 mg HS PO 08/07/24 11:00 Clopidogrel Bisulfate 75 mg DAILY PO 08/07/24 22:00 08/28/24 22:00 Lorazepam 1 mg ONCE PRN IV 08/07/24 11:00 Indomethacin 50 mg TID PRN PO 08/07/24 11:15 UNV Hydralazine HCl 10 mg Q6HP PRN IV 08/07/24 11:30 UNV Examination General Appearance: Alert, Oriented X3, Cooperative, No acute distress HEENT: Atraumatic, PERRLA, EOMI, Mucous membrane moist/pink Respiratory: Clear to auscultation, Normal air movement Cardiovascular: Regular rate, Normal S1, Normal S2, No murmurs, no chest wall tenderness Abdominal: NO distention, no tenderness, bowel sounds present, no scars noted Extremities: No clubbing, No cyanosis, No edema, Normal pulses, No tenderness/swelling, --tophi hands and elbows, metacapal phalangeal joints Skin: No rashes, No breakdown, No significant lesion Neuro: Normal gait, Normal speech, Strength at 5/5 X4 ext, Normal tone, Sensation intact, Cranial nerves 3-12 NL, Reflexes 2+ Psych/Mental Status: Mental status NL, Mood NL laboratory and microbiology Laboratory Tests 08/07/24 04:06 Test 08/07/24 04:06 Range/Units Serum Glucose 110 H 74-106 mg/dL Problem List/Assessment/Plan Problem List/Assessment/Plan Assessment Acute gout Acute/subacute stroke per CT scan Metabolic encephalopathy Marijuana use morbid obesity, BMI: 42.1 VAL due to VMN val vs ckd vs val on ckd hyperammonemia--resolve hypokalemia tophi hands and elbows History Alcoholism Plan Telemetry Colchicine0.6MG BID indomethacine 50 mg TID Uric acid level Aspirin 81 mg daily Plavix 75 mg daily for 21 days Lipitor 40 mg daily EEG Echocardiogram Carotid Doppler MR head Thiamine supplementation Folic acid supplementation Permissive hypertension. Will get the Uric acid level and transition to allopurinol after the acute phase CODE STATUS: FULL Goal of care discussed for more than 35 minutes Case and plan discussed with Dr. Martin Plan discussed with: Patient My Orders My Orders Orders - DALE GARCIA Procedure Category Date Status Time Uric Acid LAB 08/07/24 In Process 11:11 Indomethacin Capsule PHA 08/07/24 Logged (Indocin Capsule) 11:15 Hydralazine Injection PHA 08/07/24 Logged (Apresoline Inject 11:30 Date of Service: Aug 07, 2024 Billing Provider: ELIU MARTIN MD Common Visit Codes: [id number] INP/OBS CARE(HIGH) DALE GARCIA RESIDENT Aug 07, 2024 12:48 ELIU MARTIN MD Aug 08, 2024 05:02
--- NOTE | 2024-08-07 13:15 | DVH ---
EXAMINATION: MRI BRAIN HEAD WO CONTRAST INDICATION: cva COMPARISON: None TECHNIQUE: Multiplanar, multisequence magnetic resonance imaging of the brain was performed without the use of i ntravenous contrast. FINDINGS: There is a 1.4 cm focus of restricted diffusion in the left thalamus. There are corresponding hyperi ntense T2 and hypointense T1 signal changes. There is no evidence of acute hemorrhage. There are no s ignificant surrounding edematous changes. There is no associated mass effect. There are small chronic lacunar infarcts in the right centrum semiovale. There are moderate chronic small-vessel white matter ischemic changes. There are scattered nonspecific punctate foci of blooming artifact in the right and left cerebrum which may represent foci of chronic microhemorrhages. There is no hydrocephalus or extra-axial fluid collection. The visualized intracranial vasculature de monstrates appropriate flow-voids. The sagittal midline structures appear unremarkable. The craniocer vical junction is within normal limits. The calvarium demonstrates normal marrow signal. There is mod erate mucosal thickening with secretions in the left maxillary sinus. Mastoid air cells are clear. IMPRESSION: 1. There is an acute to subacute infarct in the left thalamus. There is no evidence of acute hemorrha ge. There are no surrounding edematous changes and associated mass effect. 2. Scattered nonspecific punctate foci of blooming artifact in the right and left cerebrum which may represent foci of chronic microhemorrhages. HS:Y
[2024-08-07 16:04] VITALS: RESP 16; O2SAT 97
[2024-08-07] MEDS: hydrALAZINE HCL 20 MG/ML VL IV PRN (17:22)
[2024-08-07] MEDS: THIAMINE INJ 500 MG in D5W 5% 50 ML IV SCH (17:34)
[2024-08-07 18:01] VITALS: BP 185/90; PULSE 73; RESP 22; TEMP 97.8; O2SAT 98
[2024-08-07 18:11] VITALS: BP 187/83; PULSE 72; RESP 20; TEMP 97.7; O2SAT 99
[2024-08-07 20:00] VITALS: PULSE 70; PULSE 72; RESP 24; O2SAT 99
[2024-08-07 21:00] VITALS: BP 203/102; PULSE 72; RESP 24; TEMP 98.1; O2SAT 99
[2024-08-07] MEDS: COLCHICINE 0.6 MG CAP PO SCH (21:40)
[2024-08-07] MEDS: CLOPIDOGREL BISULFATE 75 MG TAB PO SCH (21:46)
[2024-08-07] MEDS ORDERED: ATORVASTATIN 20 MG TAB PO SCH (22:00)
[2024-08-08] VITALS (9 sets, daily range): BP systolic 154–215; BP diastolic 72–102; PULSE 76–86; RESP 18–24; TEMP 97.7–100.1; O2SAT 91–99
[2024-08-08] MEDS: FOLIC ACID 1 MG in D5W 5% 50 ML INJ SCH (10:00)
[2024-08-08] MEDS ORDERED: THIAMINE 100mg/ml INJ (200mg/2ml VIAL) IV SCH (10:00)
[2024-08-08 11:48] LABS: Sodium 140 mmol/L (136-145)
[2024-08-08 11:49] LABS: Anion Gap 10 (5-15); Calcium 9.2 mg/dL (8.7-10.4); Carbon Dioxide 22 mmol/L (20-31)
[2024-08-08 11:54] LABS: Glucose 103 mg/dL (74-106)
[2024-08-08 12:02] LABS: Basophils # (auto) 0 10 ^3/uL (0-0.2); Basophils % (auto) 0.4 % (0.0-2.0); Eosinophils # (auto) 0.2 10 ^3/uL (0-0.8); Eosinophils % (auto) 2.4 % (0.0-7.0); Hematocrit 43.4 % (41.0-53.0); Hemoglobin 15.1 g/dL (13.5-17.5); Lymphocytes # (auto) 0.9 10 ^3/uL (0.4-5.4); Lymphocytes % (auto) 11.6 % (10.0-50.0); Mean Corpuscular Hemoglobin 33.1 pg (28.0-32.0); Mean Corpuscular Hgb Conc. 34.7 g/dL (32.0-36.0); Mean Corpuscular Volume 95.2 fL (80.0-100.0); Monocytes # (auto) 0.6 10 ^3/uL (0-1.3); Monocytes % (auto) 7.6 % (0.0-12.0); Neutrophils # (auto) 5.8 10 ^3/uL (1.6-8.6); Nucleated Red Blood Cells % 0.1 %; Platelet Count (auto) 190 10^3/uL (140-450); Red Blood Cells 4.56 10^6/uL (4.5-5.90); White Blood Cell 7.4 10^3/uL (4.4-10.8)
[2024-08-08 12:25] LABS: BUN/Creatinine Ratio 14.4 (10.0-20.0); Blood Urea Nitrogen 20 mg/dL (9-23); Chloride 108 mmol/L (98-107); Potassium 3.7 mmol/L (3.5-5.1)
--- NOTE | 2024-08-08 16:49 | DVHPNRES ---
Progress Note Date Seen: Aug 08, 2024 Resident Creating Document: DALE GARCIA RESIDENT Medical Necessity Reason Pt with a Central, PICC or Fol: No Medical Necessity Reason Acute gout Ischemic stroke Subjective Review of Systems This is a 62-year-old male with past medical history of gout, hypertension brought to ED due to right knee pain, confusion and slurred speech for two 2 days noticed by his brother. Patient mentioned that for the past few days, he has been having severe joint pains in her knees ( R>L). He also mentioned that he has not see a health care provide since 1992. Per patient's chart, patient has history of gout 30 years with recurrent flare-ups, with multiple tophi on bilateral upper limbs. He also complained of auditory hallucination (hears departed bothers speak) and hard time finding words. He seemed confused. Patient denies fever, nausea, vomiting, chest pain, shortness of breath, any recent injury or trauma, or any motor or sensory deficits. Vitals reveal temperature 98.9 pulse 77 respiratory 16 and blood pressure 148/91, UA is unremarkable uric acid pending. CT of the head revealed 1. Acute or subacute infarct in the left thalamus. No evidence of acute intracranial hemorrhage. Carotid Doppler showec No hemodynamically significant stenosis noted in the right carotid system.No hemodynamically significant stenosis noted in the left carotid system. Venous Doppler revealed1. No right or left femoropopliteal venous thrombosis. Chest x-ray showed shows cardiomegaly.CT abdomen Subtle heterogeneous hypodense nodular area in the posterior right hepatic lobe measuring 5.2 cm. A hepatic lesion is not excluded.Distal colon diverticulosis. Prostatomegaly. Poorly filled bladder demonstrates circumferential wall thickening likely related to chronic outlet obstruction.Fat containing umbilical hernia. PN: : Patient is seen and examined at the bedside today. He was lying in bed and seemed to be in so much pain. Patient mentioned that he has been unable to move because of pain all over his body. Currently patient is managed for acute gout and also stroke. We are keeping him in permissive hypertension for at least the 1st 48 hours then we can do to regular blood pressure management. Of note, further history taken from the patient today he revealed to me that think about 36 bottles of beer/day the last time he had a drink was about 3 days prior to presentation. Patient also admits to eating lots of red meat. Uric acid is 10.0, cr: 1.39 and Echo pending. Objective vital signs Vital Sign Date Time Temp Pulse Resp B/P (MAP) Pulse Ox O2 Delivery O2 Flow Rate FiO2 08/08/24 14:26 98.9 98.9 08/08/24 13:00 76 20 206/94 (131) 97 08/08/24 08:00 Room Air* 0 21 Total Intake and Output 08/07/24 08/07/24 08/08/24 15:00 23:00 07:00 Intake Total 385 ml Output Total 1250 ml Balance -865 ml medications Current Medications Medications Dose Ordered Sig/Allie Route Start Time Stop Time Status Last Admin Dose Admin Folic Acid 1 mg/ Dextrose 50.2 ml @ 200.8 mls/ hr DAILY INJ 08/08/24 10:00 08/08/24 10:00 200.8 MLS/HR Colchicine 0.6 mg Q12HR PO 08/07/24 22:00 08/08/24 10:55 0.6 MG Lorazepam 1 mg Q2HPRN PRN IV 08/07/24 02:45 Aspirin 81 mg DAILY PO 08/07/24 10:00 08/08/24 10:54 81 MG Enoxaparin Sodium 40 mg DAILY SC 08/08/24 10:00 Thiamine HCl 500 mg/Dextrose 55 ml @ 100 mls/hr TID IV 08/07/24 14:00 08/09/24 06:32 08/08/24 14:00 100 MLS/HR Atorvastatin Calcium 40 mg HS PO 08/07/24 11:00 08/07/24 21:40 40 MG Clopidogrel Bisulfate 75 mg DAILY PO 08/07/24 22:00 08/28/24 22:00 08/08/24 10:55 75 MG Lorazepam 1 mg ONCE PRN IV 08/07/24 11:00 Indomethacin 50 mg TID PRN PO 08/07/24 11:15 Hydralazine HCl 10 mg Q6HP PRN IV 08/07/24 11:30 08/07/24 23:40 10 MG Examination General Appearance: Alert, Oriented X3, Cooperative, No acute distress HEENT: Atraumatic, PERRLA, EOMI, Mucous membrane moist/pink Respiratory: Clear to auscultation, Normal air movement Cardiovascular: Regular rate, Normal S1, Normal S2, No murmurs, no chest wall tenderness Abdominal: NO distention, no tenderness, bowel sounds present, no scars noted Extremities: No clubbing, No cyanosis, No edema, Normal pulses, No tenderness/swelling, --tophi hands and elbows, metacarpal phalangeal joints --> Pitting edema Skin: No rashes, No breakdown, No significant lesion Neuro: Normal gait, Normal speech, Strength at 5/5 X4 ext, Normal tone, Sensation intact, Cranial nerves 3-12 NL, Reflexes 2+ Psych/Mental Status: Mental status NL, Mood NL laboratory and microbiology Laboratory Tests 08/08/24 10:11 Test 08/08/24 10:11 Range/Units Serum Glucose 103 74-106 mg/dL Labs and/or images reviewed: Labs reviewed by me, Image(s) reviewed by me Problem List/Assessment/Plan Problem List/Assessment/Plan Assessment Acute gout Arthritis of knee ( R>ll) Acute/subacute stroke per CT scan Metabolic encephalopathy Marijuana use disorder Morbid obesity, BMI: 42.1 VAL due to VMN Hyperammonemia--resolve Hypokalemia Tophi hands and elbows History of Alcoholism Plan Telemetry Colchicine 0.6 mg BID indomethacin 50 mg TID Aspirin 81 mg daily Plavix 75 mg daily for 21 days Lipitor 40 mg daily Echocardiogram: report pending MR head EEG Thiamine supplementation Folic acid supplementation Permissive hypertension. Will initiate allopurinol after the acute flare office services manager consult ordered PT ordered Counseled on marijuana use cessation for 16 minutes CODE STATUS: FULL Goal of care discussed for 20 minutes Case and plan discussed with Dr. Harris Plan discussed with: Patient, Other (RN) Addendum Addendum Addendum I was physically present for the purcell portions of the service provided to patient by THE RESIDENT. I have reviewed the documentation, discussed the case with resident and agree with the resident's documentation except as noted. Also the patient's clinical case was discussed with the patient's nurse. This medical document was created using an electronic medical record system with computerized dictation system. Although this document has been carefully reviewed, there might still be some phonetic and typographical errors. These areas are purely typographical due to imperfections of the software programs, and do not reflect any compromise in the patient's medical care. Late signature. Date of Service: Aug 08, 2024 Billing Provider: CARTER HARRIS MD Common Visit Codes: [id number] INP/OBS CARE(HIGH) Secondary Visit Codes: 88319-[id number] CHNG SMOKING >10MIN (Counseled on marijuana use cessation for 16 minutes), [id number] CARE PLAN 30 MINUTES (20 minutes) DALE GARCIA RESIDENT Aug 08, 2024 16:49 CARTER HARRIS MD Aug 09, 2024 07:42
--- NOTE | 2024-08-08 17:25 | DVHSR ---
APPROVED REPORT EXAM: Two-dimensional and M-mode echocardiogram with Doppler and color Doppler. Blood Pressure: 154/72 mmHg INDICATION Stroke RISK FACTORS Height: 5'6", Weight: 261 DIMENSIONS LVDd4.8 (3.8-5.7cm)LA (2D)5.4 (1.9-4.0cm)Aortic Root3.0 (2.0-3.7cm) LVDs3.4 (2.5-4.0cm)LA (MM) (1.9-4.0cm)Aortic Cusp Exc2.0 (1.5-2.0cm) EF (%) 56.0 (55-70%)Rt. Atrium5.3 (1.9-4.0cm)Asc. Aorta3.9 cm IVSd1.4 (0.7-1.1cm)RV (D) (1.8-2.4cm) PWd1.8 (0.7-1.1cm) Mitral Valve MitralMitral Stenosis E wave0.49m/sMV Mean GR.mmHg A wave0.91m/sMV Peak GR.mmHg E/A ratio0.52D MVAcm2 DECEL [id number] 1/2 Timems Aortic Valve Aortic ValveAortic Stenosis V11.37m/Gisel Mean GR.6mmHg V21.77m/Gisel Peak GR.13mmHg LVOT Diameter2.2 (1.8-2.4cm)Doppler AVA2.94cm2 AI P 1/2 [id number] Pulmonic Valve V21.47m/s Tricuspid Valve TR Velocity2.61m/s [id number] Other Information Quality : Technically LimitedRhythm : Technically limited study due to body habitus. Conclusion Concentric LVH. Left atrial enlargement. Valves appear to be structurally normal. Left ventricular function is preserved at 60% with normal RV function. Mild AI. Mild tricuspid regurgitation. No pericardial effusion masses or vegetations discernible. Contrast ECHO confirms left ventricular ejection fraction of greater than 55%
[2024-08-08] MEDS: ENOXAPARIN SOD 40 MG/0.4 ML SYRINGE SC SCH (17:46)
[2024-08-08] MEDS: SODIUM CHLORIDE 0.9% 1,000 ML IV SCH (20:00)
--- NOTE | 2024-08-08 22:48 | DVHEEG2 ---
Neurology EEG Procedural Note Procedural Note EXAM DATE: 08/08/2024 REFERRING DOCTOR: Dr. Gutierrez TECHNIQUE: Eighteen channels of EEG, 2 channels of EOG, and 1 channel of EKG were recorded using the International 10/20 system. CLINICAL DATA: The patient was referred for an EEG evaluation for the evidence of seizure disorder. MEDICATIONS: See the chart BACKGROUND ACTIVITY: While the patient was awake, the background activity consisted of well regulated 10 Hz rhythmic waveforms, symmetrically distributed over both posterior quadrants and was reactive to eye opening. ACTIVATION: Hyperventilation: Not done Photic Stimulation: Not done Sleep: Noticed IMPRESSION: This is a normal EEG. No focal, lateralized, or epileptiform features are noted. If clinically indicated to rule out a seizure disorder, recommend repeat EEG with sleep deprivation. The EKG channel showed a regular heart rate of 72/min[place] [address] FELIX GUTIERREZ MD Aug 08, 2024 22:48
--- NOTE | 2024-08-08 23:02 | DVHPN2 ---
Progress Note - Dictate Date Seen: Aug 08, 2024 Medical Necessity Reason Pt with a Central, PICC or Fol: No Subjective Mr. Duarte is a 64 years old right-handed gentleman with a history of obesity, h e was brought to the hospital on 08/06/2024 with a chief company of confusion, forgetfulness and slurred speech for two days. I have seen and examined the patient, I have discussed with his nurse, he is oriented to person, place, with clues, he was able to tell me 2024, but he was good social skills. He looks have problems express himself UDS, 08/06/2024: Cannabinoids Plasma alcohol, 08/06/2024: 3.8 Urinalysis, 08/07/2024: WBC: not seen, urine leukocyte esterase: Negative CBC, 08/07/2024: Unremarkable PT/INR/PTT, 08/06/2024: 11.6/1.11/27.6 BUN/CR, 08/06/2024: 28/1.93, 08/07/2024: 27/2.06 HGB A1c, 08/07/2024: 5.7 TBI/AST/ALT/AP, 08/06/2024: 0.8/46/30/80 Ammonia, 08/06/2024: 35 TG/HDL/LDL/HDL, 08/07/2024: 112/151/105/36 EEG, 08/08/2024: Normal Echocardiogram, 08/08/2024: Concentric LVH. Left atrial enlargement. Valves appear to be structurally normal. Left ventricular function is preserved at 60% with normal RV function. Mild AI. Mild tricuspid regurgitation. No pericardial effusion masses or vegetations discernible. Contrast ECHO confirms left ventricular ejection fraction of greater than 55% Carotid Doppler, 08/07/24: No hemodynamically significant stenosis noted in the right carotid system. No hemodynamically significant stenosis noted in the left carotid system. CT head, 08/07/2024: 1. Acute or subacute infarct in the left thalamus. 2. No evidence of acute intracranial hemorrhage MRI head, 08/07/2024: 1. There is an acute to subacute infarct in the left thalamus. There is no evidence of acute hemorrhage. There are no surrounding edematous changes and associated mass effect. 2. Scattered nonspecific punctate foci of blooming artifact in the right and left cerebrum which may represent foci of chronic microhemorrhages vital signs Vital Sign Date Time Temp Pulse Resp B/P (MAP) Pulse Ox O2 Delivery O2 Flow Rate FiO2 08/08/24 21:00 98.0 77 24 194/101 (132) 96 98.0 08/08/24 08:00 Room Air* 0 21 Total Intake and Output 08/07/24 08/07/24 08/08/24 15:00 23:00 07:00 Intake Total 385 ml Output Total 1250 ml Balance -865 ml medications Current Medications Medications Dose Ordered Sig/Allie Route Start Time Stop Time Status Last Admin Dose Admin Folic Acid 1 mg/ Dextrose 50.2 ml @ 200.8 mls/ hr DAILY INJ 08/08/24 10:00 08/08/24 10:00 200.8 MLS/HR Colchicine 0.6 mg Q12HR PO 08/07/24 22:00 08/08/24 21:08 0.6 MG Lorazepam 1 mg Q2HPRN PRN IV 08/07/24 02:45 Aspirin 81 mg DAILY PO 08/07/24 10:00 08/08/24 10:54 81 MG Enoxaparin Sodium 40 mg DAILY SC 08/08/24 10:00 08/08/24 17:46 40 MG Thiamine HCl 500 mg/Dextrose 55 ml @ 100 mls/hr TID IV 08/07/24 14:00 08/09/24 06:32 08/08/24 21:08 100 MLS/HR Atorvastatin Calcium 40 mg HS PO 08/07/24 11:00 08/08/24 21:08 40 MG Clopidogrel Bisulfate 75 mg DAILY PO 08/07/24 22:00 08/28/24 22:00 08/08/24 10:55 75 MG Lorazepam 1 mg ONCE PRN IV 08/07/24 11:00 Indomethacin 50 mg TID PRN PO 08/07/24 11:15 Hydralazine HCl 10 mg Q6HP PRN IV 08/07/24 11:30 08/08/24 17:45 10 MG Sodium Chloride 1,000 ml @ 100 mls/hr Q10H IV 08/08/24 16:45 objective General: the patient is well developed and nourished. No acute distress. MENTAL STATUS: Awake and alert. Oriented to person, place, good social skills SPEECH, LANGUAGE, HIGHER CORTICAL FUNCTION: no aphasia or dysathria. CRANIAL NERVES: Facial sensation intact in all three divisions bilaterally. Mandibular strength intact. Facial muscles symmetrical and strength intact. SENSATION: Sensation to touch and pinprick is normal. MOTOR: Normal tone in the upper and lower extremity. Normal muscle bulk. No fasciculations. No abnormal movements or posturing. Muscle strength of the major groups in the extremities is 5/5. REFLEXES: Deep tendon reflexes normal and symmetrical. No pathological reflexes. CEREBELLAR/COORDINATION: Finger to nose is normal bilaterally. GAIT/STATION: deferred. laboratory and microbiology Laboratory Tests 08/08/24 10:11 Test 08/08/24 10:11 Range/Units Serum Glucose 103 74-106 mg/dL Problem List Acute mental status changes/confusion/slurred speech Metabolic encephalopathy ? Wernicke encephalopathy ? Korsakoff disease Partial complex seizure Stroke Acute/subacute stroke per CT/MRI scan Alcoholism Assessment/Plan Monitoring Supportive treatment Telemetry Thiamine supplementation Folic acid supplementation Aspirin 81 mg daily Plavix 75 mg daily for 21 days Lipitor 40 mg daily We have discussed about alcohol problem Lifestyle/stroke with effect discussed More recommendation per clinical course This medical document was created using an electronic medical record system with [employer] dictation system. Although this document has been carefully reviewed, there may still be some phonetic and typographical errors. These areas are purely typographical due to imperfections of the software programs, and do not reflect any compromise in the patient's medical care Prognosis poor Plan discussed with: Other FELIX GUTIERREZ MD Aug 08, 2024 23:02
[2024-08-09] VITALS (9 sets, daily range): BP systolic 168–232; BP diastolic 63–115; PULSE 66–86; RESP 19–24; TEMP 97.8–98.5; O2SAT 91–98
[2024-08-09 09:34] LABS: Sodium 141 mmol/L (136-145)
[2024-08-09 09:35] LABS: Anion Gap 9 (5-15); Calcium 9.2 mg/dL (8.7-10.4); Carbon Dioxide 23 mmol/L (20-31)
[2024-08-09 09:36] LABS: Chloride 109 mmol/L (98-107); Potassium 3.4 mmol/L (3.5-5.1)
[2024-08-09 09:40] LABS: BUN/Creatinine Ratio 10.9 (10.0-20.0); Blood Urea Nitrogen 15 mg/dL (9-23)
[2024-08-09 09:46] LABS: Glucose 110 mg/dL (74-106)
--- NOTE | 2024-08-09 16:20 | DVHPNRES ---
Progress Note Date Seen: Aug 09, 2024 Resident Creating Document: DALE GARCIA RESIDENT Medical Necessity Reason Pt with a Central, PICC or Fol: No Medical Necessity Reason Acute gout ischemic stroke Subjective Review of Systems This is a 62-year-old male with past medical history of gout, hypertension brought to ED due to right knee pain, confusion and slurred speech for two 2 days noticed by his brother. Patient mentioned that for the past few days, he has been having severe joint pains in her knees ( R>L). He also mentioned that he has not see a health care provide since 1992. Per patient's chart, patient has history of gout 30 years with recurrent flare-ups, with multiple tophi on bilateral upper limbs. He also complained of auditory hallucination (hears departed bothers speak) and hard time finding words. He seemed confused. Patient denies fever, nausea, vomiting, chest pain, shortness of breath, any recent injury or trauma, or any motor or sensory deficits. Vitals reveal temperature 98.9 pulse 77 respiratory 16 and blood pressure 148/91, UA is unremarkable uric acid pending. CT of the head revealed 1. Acute or subacute infarct in the left thalamus. No evidence of acute intracranial hemorrhage. Carotid Doppler showec No hemodynamically significant stenosis noted in the right carotid system.No hemodynamically significant stenosis noted in the left carotid system. Venous Doppler revealed1. No right or left femoropopliteal venous thrombosis. Chest x-ray showed shows cardiomegaly.CT abdomen Subtle heterogeneous hypodense nodular area in the posterior right hepatic lobe measuring 5.2 cm. A hepatic lesion is not excluded.Distal colon diverticulosis. Prostatomegaly. Poorly filled bladder demonstrates circumferential wall thickening likely related to chronic outlet obstruction.Fat containing umbilical hernia. PN: 08/08/2024: Patient is seen and examined at the bedside today. He was lying in bed and seemed to be in so much pain. Patient mentioned that he has been unable to move because of pain all over his body. Currently patient is managed for acute gout and also stroke. We are keeping him in permissive hypertension for at least the 1st 48 hours then we can do to regular blood pressure management. Of note, further history taken from the patient today he revealed to me that think about 36 bottles of beer/day the last time he had a drink was about 3 days prior to presentation. Patient also admits to eating lots of red meat. Uric acid is 10.0, cr: 1.39 and Echo pending. PN: 08/09/2024: Patient is seen and examined at the bedside today. He is currently on indomethacin and colchicine. Uric acid is elevated. Patient continues to complained of pain his legs R> L. He has been in permissive hypertension for over 2 days. Blood pressure right now is 212/103. Will start him on hypertension medication now. Echo showed EF 60% with normal RV function. Objective vital signs Vital Sign Date Time Temp Pulse Resp B/P (MAP) Pulse Ox O2 Delivery O2 Flow Rate FiO2 08/09/24 14:00 98.5 73 20 212/103 (139) 91 98.5 08/09/24 08:00 Room Air* 0 21 Total Intake and Output 08/08/24 08/08/24 08/09/24 15:00 23:00 07:00 Intake Total 605.2 ml 1255 ml 555 ml Output Total 1300 ml 450 ml Balance 605.2 ml -45 ml 105 ml medications Current Medications Medications Dose Ordered Sig/Allie Route Start Time Stop Time Status Last Admin Dose Admin Folic Acid 1 mg/ Dextrose 50.2 ml @ 200.8 mls/ hr DAILY INJ 08/08/24 10:00 08/09/24 09:36 200.8 MLS/HR Colchicine 0.6 mg Q12HR PO 08/07/24 22:00 08/09/24 09:36 0.6 MG Lorazepam 1 mg Q2HPRN PRN IV 08/07/24 02:45 Aspirin 81 mg DAILY PO 08/07/24 10:00 08/09/24 09:36 81 MG Enoxaparin Sodium 40 mg DAILY SC 08/08/24 10:00 08/09/24 09:37 40 MG Atorvastatin Calcium 40 mg HS PO 08/07/24 11:00 08/08/24 21:08 40 MG Clopidogrel Bisulfate 75 mg DAILY PO 08/07/24 22:00 08/28/24 22:00 08/09/24 09:37 75 MG Lorazepam 1 mg ONCE PRN IV 08/07/24 11:00 Indomethacin 50 mg TID PRN PO 08/07/24 11:15 Hydralazine HCl 10 mg Q6HP PRN IV 08/07/24 11:30 08/08/24 17:45 10 MG Sodium Chloride 1,000 ml @ 100 mls/hr Q10H IV 08/08/24 16:45 08/08/24 20:00 100 MLS/HR Examination General Appearance: Alert, Oriented X3, Cooperative, No acute distress HEENT: Atraumatic, PERRLA, EOMI, Mucous membrane moist/pink Respiratory: Clear to auscultation, Normal air movement Cardiovascular: Regular rate, Normal S1, Normal S2, No murmurs, no chest wall tenderness Abdominal: NO distention, no tenderness, bowel sounds present, no scars noted Extremities: No clubbing, No cyanosis, No edema, Normal pulses, No tenderness/swelling, --tophi hands and elbows, metacarpal phalangeal joints --> Pitting edema Skin: No rashes, No breakdown, No significant lesion Neuro: Normal gait, Normal speech, Strength at 5/5 X4 ext, Normal tone, Sensation intact, Cranial nerves 3-12 NL, Reflexes 2+ Psych/Mental Status: Mental status NL, Mood NL laboratory and microbiology Laboratory Tests 08/09/24 09:00 08/08/24 10:11 Test 08/09/24 09:00 Range/Units Serum Glucose 110 H 74-106 mg/dL Problem List/Assessment/Plan Problem List/Assessment/Plan Assessment Acute gout 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 No focal, lateralized, or epileptiform features are noted Echo: 60% Plan Telemetry Colchicine 0.6 mg BID indomethacin 50 mg TID Aspirin 81 mg daily Plavix 75 mg daily for 21 days Lipitor 40 mg daily Allopurinol 100 daily and titrate up until the desired uric acid Metoprolol XL 50mg daily Lisinopril 40 daily Thiamine supplementation Folic acid supplementation environmental services assistant consult ordered PT ordered CODE STATUS: FULL Goal of care discussed for more than 25 minutes Case and plan discussed with Dr. Martin Plan discussed with: Patient, Son, Other (family) My Orders My Orders Orders - DALE GARCIA RESIDENT Procedure Category Date Status Time * Tool Rental Technician CONS 08/08/24 Transmitted Consult Pt Request For Service PT 08/08/24 Logged 16:29 Sodium Chloride 0.9% PHA 08/08/24 In Process 16:45 Metoprolol Xl PHA 08/10/24 Verified Succinate (Toprol Xl) 10:00 Lisinopril Tablet PHA 08/10/24 Verified (Zestril Tablet) 10:00 Lisinopril Tablet PHA 08/09/24 Verified (Zestril Tablet) 16:15 Metoprolol Xl PHA 08/09/24 Verified Succinate (Toprol Xl) 16:15 Date of Service: Aug 09, 2024 Billing Provider: ELIU MARTIN MD Common Visit Codes: [id number] INP/OBS CARE(HIGH) DALE GARCIA RESIDENT Aug 09, 2024 16:20 ELIU MARTIN MD Aug 09, 2024 21:12
[2024-08-09] MEDS: ALLOPURINOL 100 MG TAB PO ONE (18:01)
[2024-08-09] MEDS: METOPROLOL SUCCINATE XL 50 MG TAB PO ONE (18:02)
[2024-08-09] MEDS: LISINOPRIL 20 MG TAB PO ONE (18:02)
[2024-08-10] VITALS (10 sets, daily range): BP systolic 134–217; BP diastolic 63–104; PULSE 65–81; RESP 16–20; TEMP 97.8–98.2; O2SAT 94–99
[2024-08-10] MEDS: METOPROLOL SUCCINATE XL 50 MG TAB PO SCH (10:34)
[2024-08-10] MEDS: LISINOPRIL 20 MG TAB PO SCH (10:37)
[2024-08-10] MEDS: ALLOPURINOL 100 MG TAB PO SCH (10:38)
[2024-08-10 10:57] LABS: Alanine Aminotransferase 25 U/L (7-40); Albumin 4.5 g/dL (3.2-4.8); Alkaline Phosphatase 97 U/L (46-116); Anion Gap 10 (5-15); Aspartate Aminotransferase 28 U/L (13-40); Bilirubin, Total 0.8 mg/dL (0.2-1.0); Blood Urea Nitrogen 16 mg/dL (9-23); Calcium 9.7 mg/dL (8.7-10.4); Carbon Dioxide 21 mmol/L (20-31); Chloride 110 mmol/L (98-107); Glucose 143 mg/dL (74-106); Potassium 3.8 mmol/L (3.5-5.1); Sodium 141 mmol/L (136-145); Total Protein 8.4 g/dL (5.7-8.2)
--- NOTE | 2024-08-10 20:55 | DVHPN2 ---
Progress Note - Dictate Date Seen: Aug 10, 2024 Medical Necessity Reason Pt with a Central, PICC or Fol: No Subjective Mr. Duarte is a 64 years old right-handed gentleman with a history of obesity, h e was brought to the hospital on 08/06/2024 with a chief company of confusion, forgetfulness and slurred speech for two days. I have seen and examined the patient, I have discussed with his nurse, he is oriented to person, place, with clues, he was able to tell me 2024, but he was good social skills. He looks have problems express himself UDS, 08/06/2024: Cannabinoids Plasma alcohol, 08/06/2024: 3.8 Urinalysis, 08/07/2024: WBC: not seen, urine leukocyte esterase: Negative CBC, 08/07/2024: Unremarkable PT/INR/PTT, 08/06/2024: 11.6/1.11/27.6 BUN/CR, 08/06/2024: 28/1.93, 08/07/2024: 27/2.06 HGB A1c, 08/07/2024: 5.7 TBI/AST/ALT/AP, 08/06/2024: 0.8/46/30/80 Ammonia, 08/06/2024: 35 TG/HDL/LDL/HDL, 08/07/2024: 112/151/105/36 EEG, 08/08/2024: Normal Echocardiogram, 08/08/2024: Concentric LVH. Left atrial enlargement. Valves appear to be structurally normal. Left ventricular function is preserved at 60% with normal RV function. Mild AI. Mild tricuspid regurgitation. No pericardial effusion masses or vegetations discernible. Contrast ECHO confirms left ventricular ejection fraction of greater than 55% Carotid Doppler, 08/07/24: No hemodynamically significant stenosis noted in the right carotid system. No hemodynamically significant stenosis noted in the left carotid system. CT head, 08/07/2024: 1. Acute or subacute infarct in the left thalamus. 2. No evidence of acute intracranial hemorrhage MRI head, 08/07/2024: 1. There is an acute to subacute infarct in the left thalamus. There is no evidence of acute hemorrhage. There are no surrounding edematous changes and associated mass effect. 2. Scattered nonspecific punctate foci of blooming artifact in the right and left cerebrum which may represent foci of chronic microhemorrhages vital signs Vital Sign Date Time Temp Pulse Resp B/P (MAP) Pulse Ox O2 Delivery O2 Flow Rate FiO2 08/10/24 17:30 69 147/84 (105) 08/10/24 16:28 97.8 17 94 97.8 08/10/24 08:00 Room Air* 0 21 Total Intake and Output 08/09/24 08/09/24 08/10/24 15:00 23:00 07:00 Intake Total 50.2 ml 200 ml Output Total 1000 ml Balance 50.2 ml -1000 ml 200 ml medications Current Medications Medications Dose Ordered Sig/Allie Route Start Time Stop Time Status Last Admin Dose Admin Folic Acid 1 mg/ Dextrose 50.2 ml @ 200.8 mls/ hr DAILY INJ 08/08/24 10:00 08/10/24 10:41 200.8 MLS/HR Colchicine 0.6 mg Q12HR PO 08/07/24 22:00 08/10/24 10:29 0.6 MG Lorazepam 1 mg Q2HPRN PRN IV 08/07/24 02:45 Aspirin 81 mg DAILY PO 08/07/24 10:00 08/10/24 10:28 81 MG Enoxaparin Sodium 40 mg DAILY SC 08/08/24 10:00 08/10/24 10:40 40 MG Atorvastatin Calcium 40 mg HS PO 08/07/24 11:00 08/09/24 21:35 40 MG Clopidogrel Bisulfate 75 mg DAILY PO 08/07/24 22:00 08/28/24 22:00 08/10/24 10:30 75 MG Lorazepam 1 mg ONCE PRN IV 08/07/24 11:00 Indomethacin 50 mg TID PRN PO 08/07/24 11:15 Hydralazine HCl 10 mg Q6HP PRN IV 08/07/24 11:30 08/09/24 21:35 10 MG Sodium Chloride 1,000 ml @ 100 mls/hr Q10H IV 08/08/24 16:45 08/10/24 10:32 100 MLS/HR Metoprolol Succinate 50 mg DAILY PO 08/10/24 10:00 08/10/24 10:34 50 MG Lisinopril 40 mg DAILY PO 08/10/24 10:00 08/10/24 10:37 40 MG Allopurinol 100 mg DAILY PO 08/10/24 10:00 08/10/24 10:38 100 MG objective General: the patient is well developed and nourished. No acute distress. MENTAL STATUS: Awake and alert. Oriented to person, place, good social skills SPEECH, LANGUAGE, HIGHER CORTICAL FUNCTION: no aphasia or dysathria. CRANIAL NERVES: Facial sensation intact in all three divisions bilaterally. Mandibular strength intact. Facial muscles symmetrical and strength intact. SENSATION: Sensation to touch and pinprick is normal. MOTOR: Normal tone in the upper and lower extremity. Normal muscle bulk. No fasciculations. No abnormal movements or posturing. Muscle strength of the major groups in the extremities is 5/5. REFLEXES: Deep tendon reflexes normal and symmetrical. No pathological reflexes. CEREBELLAR/COORDINATION: Finger to nose is normal bilaterally. GAIT/STATION: deferred. laboratory and microbiology Laboratory Tests 08/10/24 10:20 08/08/24 10:11 Test 08/10/24 10:20 Range/Units Serum Glucose 143 H 74-106 mg/dL Problem List Acute mental status changes/confusion/slurred speech Metabolic encephalopathy ? Wernicke encephalopathy ? Korsakoff disease Partial complex seizure Stroke Acute/subacute stroke per CT/MRI scan Alcoholism Assessment/Plan Monitoring Supportive treatment Telemetry Thiamine supplementation Folic acid supplementation Aspirin 81 mg daily Plavix 75 mg daily for 21 days Lipitor 40 mg daily We have discussed about alcohol problem Lifestyle/stroke with effect discussed More recommendation per clinical course This medical document was created using an electronic medical record system with [employer] dictation system. Although this document has been carefully reviewed, there may still be some phonetic and typographical errors. These areas are purely typographical due to imperfections of the software programs, and do not reflect any compromise in the patient's medical care FELIX GUTIERREZ MD Aug 10, 2024 20:54
--- NOTE | 2024-08-10 21:44 | DVHPN2 ---
Subjective The patient seems him at bedside. No complaint today. Reviewed: Care Plan, H&P, Labs, Medications, Previous Orders, Radiology Changes from previous H/P or p: No Changes Objective Vitals Vital Signs Date Time Temp Pulse Resp B/P (MAP) Pulse Ox O2 Delivery O2 Flow Rate FiO2 08/10/24 17:30 69 147/84 (105) 08/10/24 16:28 97.8 17 94 97.8 08/10/24 08:00 Room Air* 0 21 Intake/Output Intake and Output 08/10/24 07:00 Intake Total 250.2 ml Output Total 1000 ml Balance -749.8 ml Intake Oral 200 ml IV Total 50.2 ml Output Urine Total 1000 ml # Voids 2 # Bowel Movements 3 General Appearance: Alert, Oriented X3, Cooperative, No acute distress HEENT: Atraumatic, PERRLA, EOMI, Mucous membr. moist/pink Neck: Supple Lungs: Clear to auscultation, Normal air movement Cardiovascular: Regular rate, Normal S1, Normal S2, No murmurs, Gallops, Rubs Abdomen: Normal bowel sounds, Soft, No tenderness Neuro: Cranial nerves 3-12 NL Psych/Mental Status: Mental status NL Medications Current Medications Medications Dose Ordered Sig/Allie Route Start Time Stop Time Status Last Admin Dose Admin Folic Acid 1 mg/ Dextrose 50.2 ml @ 200.8 mls/ hr DAILY INJ 08/08/24 10:00 08/10/24 10:41 200.8 MLS/HR Colchicine 0.6 mg Q12HR PO 08/07/24 22:00 08/10/24 21:24 0.6 MG Lorazepam 1 mg Q2HPRN PRN IV 08/07/24 02:45 Aspirin 81 mg DAILY PO 08/07/24 10:00 08/10/24 10:28 81 MG Enoxaparin Sodium 40 mg DAILY SC 08/08/24 10:00 08/10/24 10:40 40 MG Atorvastatin Calcium 40 mg HS PO 08/07/24 11:00 08/10/24 21:24 40 MG Clopidogrel Bisulfate 75 mg DAILY PO 08/07/24 22:00 08/28/24 22:00 08/10/24 10:30 75 MG Lorazepam 1 mg ONCE PRN IV 08/07/24 11:00 Indomethacin 50 mg TID PRN PO 08/07/24 11:15 Hydralazine HCl 10 mg Q6HP PRN IV 08/07/24 11:30 08/09/24 21:35 10 MG Sodium Chloride 1,000 ml @ 100 mls/hr Q10H IV 08/08/24 16:45 08/10/24 10:32 100 MLS/HR Metoprolol Succinate 50 mg DAILY PO 08/10/24 10:00 08/10/24 10:34 50 MG Lisinopril 40 mg DAILY PO 08/10/24 10:00 08/10/24 10:37 40 MG Allopurinol 100 mg DAILY PO 08/10/24 10:00 08/10/24 10:38 100 MG Laboratory Results Laboratory Tests 08/08/24 10:11 08/10/24 10:20 Chemistry Test 08/10/24 10:20 Albumin 4.5 g/dL (3.2-4.8) Calcium Level 9.7 mg/dL (8.7-10.4) Total Protein 8.4 g/dL (5.7-8.2) H LFT Test 08/10/24 10:20 Alanine Aminotransferase (ALT) 25 U/L (7-40) Alkaline Phosphatase 97 U/L (46-116) Aspartate Amino Transferase (AST) 28 U/L (13-40) Total Bilirubin 0.8 mg/dL (0.2-1.0) Urinalysis Test 08/07/24 06:45 Urine Color Yellow (Yellow) Urine Clarity Clear (Clear) Urine pH 6.0 (5.0-9.0) Urine Specific [place] 1.020 (1.001-1.035) Urine Protein 2+ (Negative) H Urine Ketones Negative (Negative) Urine Blood Negative /uL (Negative) Urine Nitrite Negative (Negative) Urine Bilirubin Negative (Negative) Urine Urobilinogen Normal mg/dL (Negative) Urine Leukocyte Esterase Negative /uL (Negative) Urine RBC None seen /hpf (0 - 3) Urine Microscopic WBC /HPF (0-3) Urine Squamous Epithelial Cells Few /hpf (<5) Urine Bacteria None seen /hpf (None Seen) Urine Hyaline Casts Few /lpf (0 - 2) Urine Creatinine 187.10 mg/dL (30.0-125.0) H Urine Sodium 16 mmol/L (40-220) L Urine Glucose Normal mg/dL (Normal) Labs and/or images reviewed: Labs reviewed by me Assessment/Plan Assessment/Plan Acute gout 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 No focal, lateralized, or epileptiform features are noted Echo: 60% Plan Continuing current management. Continuing with colchicine and indomethacin. Aspirin and Plavix Continuing Lipitor Continuing with allopurinol Continuing with metoprolol and lisinopril This medical document was created using an electronic medical record system with [employer] computerized dictation system. Although this document has been carefully reviewed, there may still be some phonetic and typographical errors. These areas are purely typographical due to imperfections of the software programs, and do not reflect any compromise in the patient's medical care. Plan discussed with: Patient Date of Service: Aug 10, 2024 Billing Provider: ELIU KWOK MD Common Visit Codes: [id number] INP/OBS CARE(HIGH) ELIU KWOK MD Aug 10, 2024 21:44
[2024-08-11] VITALS (8 sets, daily range): BP systolic 154–187; BP diastolic 67–104; PULSE 64–83; RESP 17–20; TEMP 97–98.6; O2SAT 94–98
--- NOTE | 2024-08-11 06:02 | ECG ---
[facility] Test Date: 2024-08-11 Test Time: 05:43:26 Pat Name: JOAQUINA QUINTANA Department: Room: 0277T Gender: M Gauge Operator: AM : 1960 Requested By: DALE GARCIA Order Number: [id number] Reading MD: Arnold Weems Measurements Intervals [place] Rate: 77 P: 55 [place]: 165 QRS: 5 QRSD: 88 T: 79 QT: 429 QTc: 486 Interpretive Statements Sinus rhythm Borderline T wave abnormalities Borderline prolonged QT interval Baseline wander in lead(s) V2,V3,V4 Electronically Signed On 08-14-2024 9:26:41 PST by Arnold Weems Please click the below link to view image of tracing.
--- NOTE | 2024-08-11 14:02 | DVHINCON2 ---
Date Seen: Aug 11, 2024 Referring Physician AUSTEN Hernandez Reason for Consultation Bradycardia History of Present Illness This is a 64-year-old male patient who presents to the emergency room with chief complaint of confusion and slurred speech for two days. He came to the emergency room for further evaluation. Imaging on head CT revealed a acute infarct in the left thalamus. Cardiology has now been consulted for br adycardia. Initial twelve lead electrocardiogram reveals normal sinus rhythm without any significant ST segment changes. The patient denies any cardiac symptoms at time of assessment. Significant past medical history includes alcohol abuse including drinking a 36 pack of beers every other day, gout, and obesity. Past Medical History Past medical history reviewed. No other significant than mentioned above. Past Surgical History Denies Family History: Arthritis G8 MOTHER Colon cancer G8 FATHER Diabetes mellitus G8 MOTHER Family History Family history reviewed. Social History Patient denies any tobacco use Patient denies any illicit drug use Patient admits to drinking a 36 pack of beers every other day Allergies: Coded Allergies: NO KNOWN ALLERGIES (Unverified , 12/10/20) Home Meds Denies taking any prescribed medications Review of Systems Constitutional: No symptom reported Ears, Nose, & Throat: No symptom reported Eyes: No symptom reported Neurological: ALOC, slurred speech Pulmonary/Respiratory: No symptoms reported Cardiovascular: No symptom reported Gastrointestinal: No symptom reported Genitourinary: No symptom reported Musculoskeletal: No symptom reported Skin: No symptom reported Psychiatric: No symptom reported Endocrine: No symptom reported Hematologic/Lymphatic: No symptom reported Vital Signs Vital Signs Date Time Temp Pulse Resp B/P (MAP) Pulse Ox O2 Delivery O2 Flow Rate FiO2 08/11/24 10:00 83 188/88 08/11/24 09:00 98.6 20 95 98.6 08/11/24 08:00 Room Air* 0 21 Physical Exam General Appearance: Cooperative. Morbidly obese Pulmonary/Respiratory: Clear, bilateral breaths sounds. Cardiovascular/Chest: Regular rate and rhythm. Peripheral Pulses: 2+ Radial (R). 2+ Radial (L). Abdominal Exam: Normal bowel sounds. Ankle Exam: 2+ pitting edema Lower extremities: 2+ pitting edema Neuro/Mental Status: A/OX4, coherent. Thoughts/Psych: Normal thought pattern. Appropriate mood and affect. Good judgment and insight. Appearance: No acute distress. Skin Exam: Discolored bilateral lower extremities Labs/Diagnostic Data Labs Test 08/10/24 21:30 08/10/24 10:20 08/08/24 10:11 08/07/24 11:16 Range/Units POC Glucose 108 H 70-106 mg/dl Sodium Level 141 136-145 mmol/L Potassium Level 3.8 3.5-5.1 mmol/L Chloride Level 110 H 98-107 mmol/L Carbon Dioxide Level 21 20-31 mmol/L Anion Gap 10 5-15 Blood Urea Nitrogen 16 9-23 mg/dL Creatinine 1.60 H 0.700-1.30 mg/dL Glomerular Filtration Rate Calc 48 >90 mL/min BUN/Creatinine Ratio 10.0 10.0-20.0 Serum Glucose 143 H 74-106 mg/dL Calcium Level 9.7 8.7-10.4 mg/dL Total Bilirubin 0.8 0.2-1.0 mg/dL Aspartate Amino Transferase (AST) 28 13-40 U/L Alanine Aminotransferase (ALT) 25 7-40 U/L Alkaline Phosphatase 97 46-116 U/L Total Protein 8.4 H 5.7-8.2 g/dL Albumin 4.5 3.2-4.8 g/dL White Blood Count 7.4 4.4-10.8 10^3/uL Red Blood Count 4.56 4.5-5.90 10^6/uL Hemoglobin 15.1 13.5-17.5 g/dL Hematocrit 43.4 41.0-53.0 % Mean Corpuscular Volume 95.2 80.0-100.0 fL Mean Corpuscular Hemoglobin 33.1 H 28.0-32.0 pg Mean Corpuscular Hemoglobin Concent 34.7 32.0-36.0 g/dL Red Cell Distribution Width 13.0 11.8-14.3 % Platelet Count 190 140-450 10^3/uL Mean Platelet Volume 9.0 6.9-10.8 fL Neutrophils (%) (Auto) 78.0 37.0-80.0 % Lymphocytes (%) (Auto) 11.6 10.0-50.0 % Monocytes (%) (Auto) 7.6 0.0-12.0 % Eosinophils (%) (Auto) 2.4 0.0-7.0 % Basophils (%) (Auto) 0.4 0.0-2.0 % Neutrophils # (Auto) 5.8 1.6-8.6 10 ^3/uL Lymphocytes # (Auto) 0.9 0.4-5.4 10 ^3/uL Monocytes # (Auto) 0.6 0-1.3 10 ^3/uL Eosinophils # (Auto) 0.2 0-0.8 10 ^3/uL Basophils # (Auto) 0 0-0.2 10 ^3/uL Nucleated Red Blood Cells 0.1 % Uric Acid 10.0 H 3.7-9.2 mg/dL Triglycerides Level 101 < 150 mg/dL Cholesterol Level 143 < 200 mg/dL LDL Cholesterol 99 < 100 mg/dL HDL Cholesterol 33 L 40-59 mg/dL Test 08/07/24 06:45 08/07/24 04:06 08/06/24 17:16 08/06/24 14:11 Range/Units Urine Color Yellow Yellow Urine Clarity Clear Clear Urine pH 6.0 5.0-9.0 Urine Specific Lehr 1.020 1.001-1.035 Urine Protein 2+ H Negative Urine Ketones Negative Negative Urine Blood Negative Negative /uL Urine Nitrite Negative Negative Urine Bilirubin Negative Negative Urine Urobilinogen Normal Negative mg/dL Urine Leukocyte Esterase Negative Negative /uL Urine RBC None seen 0 - 3 /hpf Urine Microscopic WBC 0-3 /HPF Urine Squamous Epithelial Cells Few <5 /hpf Urine Bacteria None seen None Seen /hpf Urine Hyaline Casts Few 0 - 2 /lpf Urine Creatinine 187.10 H 30.0-125.0 mg/dL Urine Sodium 16 L 40-220 mmol/L Urine Glucose Normal Normal mg/dL Hemoglobin A1c 5.7 <5.7 % A1C Phosphorus Level 3.8 2.4-5.1 mg/dL Magnesium Level 2.3 1.6-2.6 mg/dL Ammonia 14 11-32 umol/L B-Type Natriuretic Peptide 65.17 0-100 pg/mL Urine Opiates Screen Neg NEGATIVE Urine Fentanyl Screen Neg NEGATIVE Urine Barbiturates Screen Neg NEGATIVE Urine Phencyclidine Screen Neg NEGATIVE Urine Amphetamines Screen Neg NEGATIVE Urine Benzodiazepines Screen Neg NEGATIVE Urine Cocaine Screen Neg NEGATIVE Urine Cannabinoids Screen Pos NEGATIVE Prothrombin Time 11.6 9.3-11.8 sec Prothrombin Time INR 1.11 0.9-1.15 Activated Partial Thromboplast Time 27.8 24.5-34.5 SEC Plasma/Serum Blood Alcohol 3.8 <10 mg/dL Assessment Sinus bradycardia, now normal sinus rhythm Hypertensive urgency Acute stroke Acute kidney injury Alcohol abuse Gout Obesity Plan/Recommendation We will continue with following plan/recommendations (Dr. Andrews): Case discussed with . A transthoracic echocardiogram reveals EF 55-60%. At time of assessment, the patient remains in normal sinus rhythm. After reviewing campus monitor, the patient was noted to have non-sustaining bradycardic events in which his heart rate drops down to 38-39 beats per minute. No signs of pauses or high-degree AV blocks. We will recommend to avoid AV karely blocking agents. We will also order a TSH level. Continue with close cardiac surveillance. Critical care time spent: 40 minutes This medical document was created using an electronic medical record system with voice recognition software and computerized dictation system. Although this document has been carefully reviewed, there might still be some phonetic and typographical errors. Occasional wrong-word or ``sound-alike substitutions may have occurred due to the inherent limitations of voice recognition software. These areas are purely typographical due to imperfections of the software programs and do not reflect any compromise in the patient's medical care. Please read the chart carefully and recognize, using context, where these substitutions have occurred. Plan discussed with: Patient NYHA Physical activity limitations: NA Date of Service: Aug 11, 2024 Billing Provider: MELI SAGE Cardiology Common Codes: [id number] INP/OBS CARE (High) Cardiology Consultation Codes: [id number] CONSULT <45MIN MELI SAGE Aug 11, 2024 14:02
[2024-08-11] MEDS: LOPERAMIDE HCL 2 MG CAP/TAB PO PRN (22:36)
[2024-08-12] VITALS (9 sets, daily range): BP systolic 123–170; BP diastolic 72–94; PULSE 51–80; RESP 16–20; TEMP 97.6–98.2; O2SAT 92–96
[2024-08-12 07:08] LABS: Calcium 9.6 mg/dL (8.7-10.4); Sodium 142 mmol/L (136-145)
[2024-08-12 07:09] LABS: Anion Gap 11 (5-15); Carbon Dioxide 22 mmol/L (20-31)
[2024-08-12 07:14] LABS: Chloride 109 mmol/L (98-107); Glucose 156 mg/dL (74-106); Potassium 2.8 mmol/L (3.5-5.1)
[2024-08-12 07:16] LABS: BUN/Creatinine Ratio 14.8 (10.0-20.0); Blood Urea Nitrogen 25 mg/dL (9-23)
[2024-08-12 07:33] LABS: Basophils # (auto) 0.1 10 ^3/uL (0-0.2); Basophils % (auto) 0.7 % (0.0-2.0); Eosinophils # (auto) 0.2 10 ^3/uL (0-0.8); Eosinophils % (auto) 2.7 % (0.0-7.0); Hemoglobin 15.7 g/dL (13.5-17.5); Lymphocytes # (auto) 0.9 10 ^3/uL (0.4-5.4); Lymphocytes % (auto) 12.2 % (10.0-50.0); Mean Corpuscular Hemoglobin 32.5 pg (28.0-32.0); Mean Corpuscular Hgb Conc. 34.2 g/dL (32.0-36.0); Monocytes # (auto) 0.6 10 ^3/uL (0-1.3); Monocytes % (auto) 7.8 % (0.0-12.0); Neutrophils # (auto) 5.7 10 ^3/uL (1.6-8.6); Neutrophils % (auto) 76.6 % (37.0-80.0); Nucleated Red Blood Cells % 0.1 %; Platelet Count (auto) 210 10^3/uL (140-450); Red Blood Cells 4.84 10^6/uL (4.5-5.90); Red Cell Distribution Width 13.2 % (11.8-14.3); White Blood Cell 7.4 10^3/uL (4.4-10.8)
--- NOTE | 2024-08-12 10:50 | DVHPN2 ---
Progress Note - Dictate Date Seen: Aug 12, 2024 Medical Necessity Reason Pt with a Central, PICC or Fol: No Subjective Mr. Duarte is a 64 years old right-handed gentleman with a history of obesity, h e was brought to the hospital on 08/06/2024 with a chief company of confusion, forgetfulness and slurred speech for two days. I have seen and examined the patient, I have discussed with his nurse, he keeps improving, he is oriented to person, place, he knows year and the month, good social skills Better communication UDS, 08/06/2024: Cannabinoids Plasma alcohol, 08/06/2024: 3.8 Urinalysis, 08/07/2024: WBC: not seen, urine leukocyte esterase: Negative CBC, 08/07/2024: Unremarkable PT/INR/PTT, 08/06/2024: 11.6/1.11/27.6 BUN/CR, 08/06/2024: 28/1.93, 08/07/2024: 27/2.06 HGB A1c, 08/07/2024: 5.7 TBI/AST/ALT/AP, 08/06/2024: 0.8/46/30/80 Ammonia, 08/06/2024: 35 TG/HDL/LDL/HDL, 08/07/2024: 112/151/105/36 EEG, 08/08/2024: Normal Echocardiogram, 08/08/2024: Concentric LVH. Left atrial enlargement. Valves appear to be structurally normal. Left ventricular function is preserved at 60% with normal RV function. Mild AI. Mild tricuspid regurgitation. No pericardial effusion masses or vegetations discernible. Contrast ECHO confirms left ventricular ejection fraction of greater than 55% Carotid Doppler, 08/07/24: No hemodynamically significant stenosis noted in the right carotid system. No hemodynamically significant stenosis noted in the left carotid system. CT head, 08/07/2024: 1. Acute or subacute infarct in the left thalamus. 2. No evidence of acute intracranial hemorrhage MRI head, 08/07/2024: 1. There is an acute to subacute infarct in the left thalamus. There is no evidence of acute hemorrhage. There are no surrounding edematous changes and associated mass effect. 2. Scattered nonspecific punctate foci of blooming artifact in the right and left cerebrum which may represent foci of chronic microhemorrhages vital signs Vital Sign Date Time Temp Pulse Resp B/P (MAP) Pulse Ox O2 Delivery O2 Flow Rate FiO2 08/12/24 09:06 97.8 66 18 123/72 (89) 95 97.8 08/11/24 20:02 Room Air* 0 21 Total Intake and Output 08/11/24 08/11/24 08/12/24 15:00 23:00 07:00 Intake Total 250.2 ml 250 ml Output Total 700 ml Balance 250.2 ml -450 ml medications Current Medications Medications Dose Ordered Sig/Allie Route Start Time Stop Time Status Last Admin Dose Admin Folic Acid 1 mg/ Dextrose 50.2 ml @ 200.8 mls/ hr DAILY INJ 08/08/24 10:00 08/11/24 10:02 200.8 MLS/HR Colchicine 0.6 mg Q12HR PO 08/07/24 22:00 08/11/24 21:14 0.6 MG Lorazepam 1 mg Q2HPRN PRN IV 08/07/24 02:45 Aspirin 81 mg DAILY PO 08/07/24 10:00 08/11/24 10:00 81 MG Enoxaparin Sodium 40 mg DAILY SC 08/08/24 10:00 08/11/24 10:00 40 MG Atorvastatin Calcium 40 mg HS PO 08/07/24 11:00 08/11/24 21:14 40 MG Clopidogrel Bisulfate 75 mg DAILY PO 08/07/24 22:00 08/28/24 22:00 08/11/24 09:59 75 MG Lorazepam 1 mg ONCE PRN IV 08/07/24 11:00 Indomethacin 50 mg TID PRN PO 08/07/24 11:15 Hydralazine HCl 10 mg Q6HP PRN IV 08/07/24 11:30 08/09/24 21:35 10 MG Lisinopril 40 mg DAILY PO 08/10/24 10:00 08/11/24 09:59 40 MG Allopurinol 100 mg DAILY PO 08/10/24 10:00 08/11/24 10:00 100 MG Loperamide HCl 2 mg PRN PRN PO 08/11/24 22:30 08/12/24 04:32 2 MG objective General: the patient is well developed and nourished. No acute distress. MENTAL STATUS: Awake and alert. Oriented to person, place, good social skills SPEECH, LANGUAGE, HIGHER CORTICAL FUNCTION: no aphasia or dysathria. CRANIAL NERVES: Facial sensation intact in all three divisions bilaterally. Mandibular strength intact. Facial muscles symmetrical and strength intact. SENSATION: Sensation to touch and pinprick is normal. MOTOR: Normal tone in the upper and lower extremity. Normal muscle bulk. No fasciculations. No abnormal movements or posturing. Muscle strength of the major groups in the extremities is 5/5. REFLEXES: Deep tendon reflexes normal and symmetrical. No pathological reflexes. CEREBELLAR/COORDINATION: Finger to nose is normal bilaterally. GAIT/STATION: deferred. laboratory and microbiology Laboratory Tests 08/12/24 04:57 Test 08/12/24 04:57 Range/Units Serum Glucose 156 H 74-106 mg/dL Problem List Acute mental status changes/confusion/slurred speech Metabolic encephalopathy ? Wernicke encephalopathy ? Korsakoff disease Partial complex seizure Stroke Acute/subacute stroke per CT/MRI scan Alcoholism Assessment/Plan Monitoring Supportive treatment Telemetry Thiamine supplementation Folic acid supplementation Aspirin 81 mg daily Plavix 75 mg daily for 21 days Lipitor 40 mg daily We have discussed about alcohol problem Lifestyle/stroke with effect discussed More recommendation per clinical course This medical document was created using an electronic medical record system with [employer] dictation system. Although this document has been carefully reviewed, there may still be some phonetic and typographical errors. These areas are purely typographical due to imperfections of the software programs, and do not reflect any compromise in the patient's medical care Prognosis poor Plan discussed with: Other FELIX GUTIERREZ MD Aug 12, 2024 10:50
[2024-08-12] MEDS: ONDANSETRON HCL 4 MG/2 ML VIAL IV PRN (11:04)
[2024-08-12 12:26] LABS: Free T4 (Free Thyroxine) 1.11 ng/dL (0.89-1.76)
--- NOTE | 2024-08-12 12:42 | DVHPN2 ---
Reviewed: Care Plan, H&P, Labs, Medications, Previous Orders, Radiology Changes from previous H/P or p: No Changes General: Per HPI Objective Vitals Vital Signs Date Time Temp Pulse Resp B/P (MAP) Pulse Ox O2 Delivery O2 Flow Rate FiO2 08/12/24 11:06 123/72 08/12/24 09:06 97.8 66 18 95 97.8 08/11/24 20:02 Room Air* 0 21 Intake/Output Intake and Output 08/12/24 07:00 Intake Total 500.2 ml Output Total 700 ml Balance -199.8 ml Intake Oral 450 ml IV Total 50.2 ml Output Urine Total 700 ml # Bowel Movements 4 General Appearance: Alert, Oriented X3, Cooperative, No acute distress HEENT: Atraumatic, PERRLA, EOMI, Mucous membr. moist/pink Neck: Supple Lungs: Clear to auscultation, Normal air movement Cardiovascular: Regular rate, Normal S1, Normal S2, No murmurs, Gallops, Rubs Abdomen: Normal bowel sounds, Soft, No tenderness Neuro: Cranial nerves 3-12 NL Psych/Mental Status: Mental status NL Medications Current Medications Medications Dose Ordered Sig/Allie Route Start Time Stop Time Status Last Admin Dose Admin Folic Acid 1 mg/ Dextrose 50.2 ml @ 200.8 mls/ hr DAILY INJ 08/08/24 10:00 08/12/24 11:04 200.8 MLS/HR Colchicine 0.6 mg Q12HR PO 08/07/24 22:00 08/12/24 11:06 0.6 MG Lorazepam 1 mg Q2HPRN PRN IV 08/07/24 02:45 Aspirin 81 mg DAILY PO 08/07/24 10:00 08/12/24 11:05 81 MG Enoxaparin Sodium 40 mg DAILY SC 08/08/24 10:00 08/12/24 11:05 40 MG Atorvastatin Calcium 40 mg HS PO 08/07/24 11:00 08/11/24 21:14 40 MG Clopidogrel Bisulfate 75 mg DAILY PO 08/07/24 22:00 08/28/24 22:00 08/12/24 11:05 75 MG Lorazepam 1 mg ONCE PRN IV 08/07/24 11:00 Indomethacin 50 mg TID PRN PO 08/07/24 11:15 Hydralazine HCl 10 mg Q6HP PRN IV 08/07/24 11:30 08/09/24 21:35 10 MG Lisinopril 40 mg DAILY PO 08/10/24 10:00 08/12/24 11:06 40 MG Allopurinol 100 mg DAILY PO 08/10/24 10:00 08/12/24 11:05 100 MG Loperamide HCl 2 mg PRN PRN PO 08/11/24 22:30 08/12/24 11:05 2 MG Ondansetron HCl 4 mg Q4HPRN PRN IV 08/12/24 11:00 08/12/24 11:04 4 MG Laboratory Results Laboratory Tests 08/12/24 04:57 Chemistry Test 08/12/24 04:57 Calcium Level 9.6 mg/dL (8.7-10.4) Lipid panel Test 08/12/24 04:57 Cholesterol Level Pending HDL Cholesterol Pending Triglycerides Level Pending HgA1c, TSH Test 08/12/24 04:57 Thyroid Stimulating Hormone (TSH) 0.97 uIU/mL (0.55-4.78) Urinalysis Test 08/07/24 06:45 Urine Color Yellow (Yellow) Urine Clarity Clear (Clear) Urine pH 6.0 (5.0-9.0) Urine Specific [place]wood 1.020 (1.001-1.035) Urine Protein 2+ (Negative) H Urine Ketones Negative (Negative) Urine Blood Negative /uL (Negative) Urine Nitrite Negative (Negative) Urine Bilirubin Negative (Negative) Urine Urobilinogen Normal mg/dL (Negative) Urine Leukocyte Esterase Negative /uL (Negative) Urine RBC None seen /hpf (0 - 3) Urine Microscopic WBC /HPF (0-3) Urine Squamous Epithelial Cells Few /hpf (<5) Urine Bacteria None seen /hpf (None Seen) Urine Hyaline Casts Few /lpf (0 - 2) Urine Creatinine 187.10 mg/dL (30.0-125.0) H Urine Sodium 16 mmol/L (40-220) L Urine Glucose Normal mg/dL (Normal) Assessment/Plan Assessment/Plan Acute gout 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 No focal, lateralized, or epileptiform features are noted Echo: 60% PLAN Continuing current management. Continuing with colchicine and indomethacin. Aspirin and Plavix Continuing Lipitor Continuing with allopurinol Continuing with metoprolol and lisinopril This medical document was created using an electronic medical record system with [employer] direct computerized dictation system. Although this document has been carefully reviewed, there may still be some phonetic and typographical errors. These areas are purely typographical due to imperfections of the software programs, and do not reflect any compromise in the patient's medical care. Plan discussed with: Other (nursing staff) My Orders Orders - VANDANA METCALF DO Procedure Category Date Status Time Ondansetron Hcl PHA 08/12/24 In Process (Zofran) 11:00 Date of Service: Aug 12, 2024 Billing Provider: VANDANA METCALF DO Common Visit Codes: [id number] INP/OBS CARE(HIGH) VANDANA METCALF DO Aug 12, 2024 12:42
[2024-08-12] MEDS: POTASSIUM CHL 20 Meq TABLET PO ONE (15:42)
--- NOTE | 2024-08-12 19:27 | DVHPN2 ---
Consult Progress Note Subjective Other Systems: Patient remains in normal sinus rhythm on child monitor. Objective vital signs Vital Sign Date Time Temp Pulse Resp B/P (MAP) Pulse Ox O2 Delivery O2 Flow Rate FiO2 08/12/24 17:00 98.0 59 20 132/72 (92) 92 98.0 08/12/24 07:30 Room Air* 0 21 Total Intake and Output 08/11/24 08/11/24 08/12/24 15:00 23:00 07:00 Intake Total 250.2 ml 250 ml Output Total 700 ml Balance 250.2 ml -450 ml medications Current Medications Medications Dose Ordered Sig/Allie Route Start Time Stop Time Status Last Admin Dose Admin Folic Acid 1 mg/ Dextrose 50.2 ml @ 200.8 mls/ hr DAILY INJ 08/08/24 10:00 08/12/24 11:04 200.8 MLS/HR Colchicine 0.6 mg Q12HR PO 08/07/24 22:00 08/12/24 11:06 0.6 MG Lorazepam 1 mg Q2HPRN PRN IV 08/07/24 02:45 Aspirin 81 mg DAILY PO 08/07/24 10:00 08/12/24 11:05 81 MG Enoxaparin Sodium 40 mg DAILY SC 08/08/24 10:00 08/12/24 11:05 40 MG Atorvastatin Calcium 40 mg HS PO 08/07/24 11:00 08/11/24 21:14 40 MG Clopidogrel Bisulfate 75 mg DAILY PO 08/07/24 22:00 08/28/24 22:00 08/12/24 11:05 75 MG Lorazepam 1 mg ONCE PRN IV 08/07/24 11:00 Indomethacin 50 mg TID PRN PO 08/07/24 11:15 Hydralazine HCl 10 mg Q6HP PRN IV 08/07/24 11:30 08/09/24 21:35 10 MG Lisinopril 40 mg DAILY PO 08/10/24 10:00 08/12/24 11:06 40 MG Allopurinol 100 mg DAILY PO 08/10/24 10:00 08/12/24 11:05 100 MG Loperamide HCl 2 mg PRN PRN PO 08/11/24 22:30 08/12/24 11:05 2 MG Ondansetron HCl 4 mg Q4HPRN PRN IV 08/12/24 11:00 08/12/24 11:04 4 MG Examination: GENERAL:Normal, LUNGS:Normal, CVS:Normal, NEURO:Normal laboratory and microbiology Laboratory Tests 08/12/24 04:57 Test 08/12/24 04:57 Range/Units Serum Glucose 156 H 74-106 mg/dL Problem List/Assessment/Plan Problem List/Assessment/Plan Sinus bradycardia, now normal sinus rhythm Hypertensive urgency Acute stroke Acute kidney injury Alcohol abuse Gout Obesity Plan/Recommendation (Dr. Andrews): Case discussed with . A transthoracic echocardiogram reveals EF 55-60%. At time of assessment, the patient remains in normal sinus rhythm. After reviewing child monitor, patient did have episodes of nonsustained bradycardia overnight, without pauses or significant AV blocks. We will recommend to avoid AV karely blocking agents. Continue with close cardiac surveillance. There is no further inpatient cardiac workup indicated at this time. Thank you for allowing us to care for this patient. Please call with any questions or concerns. This medical document was created using an electronic medical record system with voice recognition software and computerized dictation system. Although this document has been carefully reviewed, there might still be some phonetic and typographical errors. Occasional wrong-word or ``sound-alike substitutions may have occurred due to the inherent limitations of voice recognition software. These areas are purely typographical due to imperfections of the software programs and do not reflect any compromise in the patient's medical care. Please read the chart carefully and recognize, using context, where these substitutions have occurred. Plan discussed with: Patient Date of Service: Aug 12, 2024 Billing Provider: MELI SAGE Common Visit Codes: [id number] INP/OBS CARE(HIGH) MELI SAGE Aug 12, 2024 19:27
--- NOTE | 2024-08-12 19:52 | DVHINCON2 ---
Date of service: Aug 12, [address] Arnol Shelton Reason for Consultation Acute kidney injury History of Present Illness Perez Duarte is a 64-year-old M with a Past Medical History pertinent for alcohol abuse who presented to the hospital with c/o confusion and slurred speech x 2 da ys on 08/06/2024. Patient admits to previously drinking 36 packs of beers every other day. During hospital stay, patient was noted with bradycardia and Cardiology consulted. Initial twelve lead electrocardiogram reveals normal sinus rhythm without any significant ST segment changes. Echocardiogram performed on 08/08/2024 reported left ventricular function is preserved at 60% with normal RV function- additional findings per report. MRI Brain performed on 08/07/24 reported there is an acute to subacute infarct in the left thalamus; no evidence of acute hemorrhage; no surrounding edematous changes and associated mass effect; scattered nonspecific punctate foci of blooming artifact in the right and left cerebrum which may represent foci of chronic microhemorrhages. Patient is currently oriented to person, place. Noted with good social skills. AM labs are remarkable for Creatinine 1.69 with BUN of 25. K 2.8. Allergies: Coded Allergies: NO KNOWN ALLERGIES (Unverified , 12/10/20) Current Medications Current Medications Medications (Trade) Dose Ordered Sig/Allie Route PRN Reason Start Time Stop Time Status Last Admin Loperamide HCl (Imodium Capsule) 2 mg PRN PRN PO FOR DIARRHEA 08/11/24 22:30 08/12/24 11:05 Ondansetron HCl (Zofran) 4 mg Q4HPRN PRN IV NAUSEA / VOMITING 08/12/24 11:00 08/12/24 11:04 Family History: Arthritis G8 MOTHER Colon cancer G8 FATHER Diabetes mellitus G8 MOTHER Review of Systems Constitutional: No symptom reported Neurological: ALOC, slurred speech Pulmonary/Respiratory: No symptoms reported Cardiovascular: No symptom reported Gastrointestinal: No symptom reported Psychiatric: No symptom reported All other systems reviewed and negative unless otherwise noted in HPI. H&P Exam Vital Signs/I&O Vital Sign Date Time Temp Pulse Resp B/P (MAP) Pulse Ox O2 Delivery O2 Flow Rate FiO2 08/12/24 17:00 98.0 59 20 132/72 (92) 92 98.0 08/12/24 07:30 Room Air* 0 21 Intake and Output 08/11/24 08/12/24 19:00 07:00 Intake Total 250.2 ml 250 ml Output Total 700 ml Balance 250.2 ml -450 ml Intake Oral 200 ml 250 ml IV Total 50.2 ml Output Urine Total 700 ml # Bowel Movements 4 Physical Exam General Appearance: In no acute distress. Cooperative. Morbidly obese HEENT: Atraumatic, PERRLA, EOMI, Mucous membrane moist/pink Pulmonary/Respiratory: Clear, bilateral breaths sounds. Cardiovascular/Chest: Regular rate and rhythm. Abdominal Exam: Normal bowel sounds. Lower extremities: 2+ pitting edema Neuro/Mental Status: A/OX4, coherent. Thoughts/Psych: Normal thought pattern. Appropriate mood and affect. Good judgment and insight. Appearance: No acute distress. Skin Exam: Discolored bilateral lower extremities Labs/Diagnostic Data Labs/Diagnostic Data Laboratory Tests Test 08/12/24 04:57 08/10/24 21:30 08/10/24 10:20 08/09/24 09:00 Range/Units White Blood Count 7.4 4.4-10.8 10^3/uL Red Blood Count 4.84 4.5-5.90 10^6/uL Hemoglobin 15.7 13.5-17.5 g/dL Hematocrit 46.0 41.0-53.0 % Mean Corpuscular Volume 95.0 80.0-100.0 fL Mean Corpuscular Hemoglobin 32.5 H 28.0-32.0 pg Mean Corpuscular Hemoglobin Concent 34.2 32.0-36.0 g/dL Red Cell Distribution Width 13.2 11.8-14.3 % Platelet Count 210 140-450 10^3/uL Mean Platelet Volume 9.4 6.9-10.8 fL Neutrophils (%) (Auto) 76.6 37.0-80.0 % Lymphocytes (%) (Auto) 12.2 10.0-50.0 % Monocytes (%) (Auto) 7.8 0.0-12.0 % Eosinophils (%) (Auto) 2.7 0.0-7.0 % Basophils (%) (Auto) 0.7 0.0-2.0 % Neutrophils # (Auto) 5.7 1.6-8.6 10 ^3/uL Lymphocytes # (Auto) 0.9 0.4-5.4 10 ^3/uL Monocytes # (Auto) 0.6 0-1.3 10 ^3/uL Eosinophils # (Auto) 0.2 0-0.8 10 ^3/uL Basophils # (Auto) 0.1 0-0.2 10 ^3/uL Nucleated Red Blood Cells 0.1 % Sodium Level 142 141 141 136-145 mmol/L Potassium Level 2.8 L 3.8 3.4 L 3.5-5.1 mmol/L Chloride Level 109 H 110 H 109 H 98-107 mmol/L Carbon Dioxide Level 22 21 23 20-31 mmol/L Anion Gap 11 10 9 5-15 Blood Urea Nitrogen 25 H 16 15 9-23 mg/dL Creatinine 1.69 H 1.60 H 1.37 H 0.700-1.30 mg/dL Glomerular Filtration Rate Calc 45 48 58 >90 mL/min BUN/Creatinine Ratio 14.8 10.0 10.9 10.0-20.0 Serum Glucose 156 H 143 H 110 H 74-106 mg/dL Calcium Level 9.6 9.7 9.2 8.7-10.4 mg/dL Vitamin B12 Level 303 211-911 pg/mL Thyroid Stimulating Hormone (TSH) 0.97 0.55-4.78 uIU/mL Free Thyroxine (T4) Calculated 1.11 0.89-1.76 ng/dL POC Glucose 108 H 70-106 mg/dl Total Bilirubin 0.8 0.2-1.0 mg/dL Aspartate Amino Transferase (AST) 28 13-40 U/L Alanine Aminotransferase (ALT) 25 7-40 U/L Alkaline Phosphatase 97 46-116 U/L Total Protein 8.4 H 5.7-8.2 g/dL Albumin 4.5 3.2-4.8 g/dL Test 08/08/24 10:11 08/07/24 11:16 08/07/24 06:45 08/07/24 04:06 Range/Units White Blood Count 7.4 7.7 4.4-10.8 10^3/uL Red Blood Count 4.56 4.55 4.5-5.90 10^6/uL Hemoglobin 15.1 15.2 13.5-17.5 g/dL Hematocrit 43.4 43.2 41.0-53.0 % Mean Corpuscular Volume 95.2 95.0 80.0-100.0 fL Mean Corpuscular Hemoglobin 33.1 H 33.3 H 28.0-32.0 pg Mean Corpuscular Hemoglobin Concent 34.7 35.1 32.0-36.0 g/dL Red Cell Distribution Width 13.0 13.6 11.8-14.3 % Platelet Count 190 216 140-450 10^3/uL Mean Platelet Volume 9.0 8.9 6.9-10.8 fL Neutrophils (%) (Auto) 78.0 65.8 37.0-80.0 % Lymphocytes (%) (Auto) 11.6 19.1 10.0-50.0 % Monocytes (%) (Auto) 7.6 9.6 0.0-12.0 % Eosinophils (%) (Auto) 2.4 4.5 0.0-7.0 % Basophils (%) (Auto) 0.4 1.0 0.0-2.0 % Neutrophils # (Auto) 5.8 5.0 1.6-8.6 10 ^3/uL Lymphocytes # (Auto) 0.9 1.5 0.4-5.4 10 ^3/uL Monocytes # (Auto) 0.6 0.7 0-1.3 10 ^3/uL Eosinophils # (Auto) 0.2 0.3 0-0.8 10 ^3/uL Basophils # (Auto) 0 0.1 0-0.2 10 ^3/uL Nucleated Red Blood Cells 0.1 0.0 % Sodium Level 140 136 # 136-145 mmol/L Potassium Level 3.7 3.4 L 3.5-5.1 mmol/L Chloride Level 108 H 103 98-107 mmol/L Carbon Dioxide Level 22 26 20-31 mmol/L Anion Gap 10 7 5-15 Blood Urea Nitrogen 20 27 H 9-23 mg/dL Creatinine 1.39 H 2.08 H 0.700-1.30 mg/dL Glomerular Filtration Rate Calc 57 35 >90 mL/min BUN/Creatinine Ratio 14.4 13.0 10.0-20.0 Serum Glucose 103 110 H 74-106 mg/dL Calcium Level 9.2 9.5 8.7-10.4 mg/dL Uric Acid 10.0 H 3.7-9.2 mg/dL Triglycerides Level 101 112 < 150 mg/dL Cholesterol Level 143 151 < 200 mg/dL LDL Cholesterol 99 105 H < 100 mg/dL HDL Cholesterol 33 L 36 L 40-59 mg/dL Urine Color Yellow Yellow Urine Clarity Clear Clear Urine pH 6.0 5.0-9.0 Urine Specific [place] 1.020 1.001-1.035 Urine Protein 2+ H Negative Urine Ketones Negative Negative Urine Blood Negative Negative /uL Urine Nitrite Negative Negative Urine Bilirubin Negative Negative Urine Urobilinogen Normal Negative mg/dL Urine Leukocyte Esterase Negative Negative /uL Urine RBC None seen 0 - 3 /hpf Urine Microscopic WBC 0-3 /HPF Urine Squamous Epithelial Cells Few <5 /hpf Urine Bacteria None seen None Seen /hpf Urine Hyaline Casts Few 0 - 2 /lpf Urine Creatinine 187.10 H 30.0-125.0 mg/dL Urine Sodium 16 L 40-220 mmol/L Urine Glucose Normal Normal mg/dL Hemoglobin A1c 5.7 <5.7 % A1C Phosphorus Level 3.8 2.4-5.1 mg/dL Magnesium Level 2.3 1.6-2.6 mg/dL Total Bilirubin 0.6 0.2-1.0 mg/dL Aspartate Amino Transferase (AST) 37 13-40 U/L Alanine Aminotransferase (ALT) 28 7-40 U/L Alkaline Phosphatase 86 46-116 U/L Ammonia 14 11-32 umol/L B-Type Natriuretic Peptide 65.17 0-100 pg/mL Total Protein 8.1 5.7-8.2 g/dL Albumin 4.5 3.2-4.8 g/dL Test 08/06/24 17:16 08/06/24 14:11 08/06/24 13:47 Range/Units Urine Opiates Screen Neg NEGATIVE Urine Fentanyl Screen Neg NEGATIVE Urine Barbiturates Screen Neg NEGATIVE Urine Phencyclidine Screen Neg NEGATIVE Urine Amphetamines Screen Neg NEGATIVE Urine Benzodiazepines Screen Neg NEGATIVE Urine Cocaine Screen Neg NEGATIVE Urine Cannabinoids Screen Pos NEGATIVE White Blood Count 7.9 4.4-10.8 10^3/uL Red Blood Count 4.79 4.5-5.90 10^6/uL Hemoglobin 15.5 13.5-17.5 g/dL Hematocrit 45.2 41.0-53.0 % Mean Corpuscular Volume 94.4 80.0-100.0 fL Mean Corpuscular Hemoglobin 32.4 H 28.0-32.0 pg Mean Corpuscular Hemoglobin Concent 34.4 32.0-36.0 g/dL Red Cell Distribution Width 13.7 11.8-14.3 % Platelet Count 209 140-450 10^3/uL Mean Platelet Volume 8.7 6.9-10.8 fL Neutrophils (%) (Auto) 69.2 37.0-80.0 % Lymphocytes (%) (Auto) 17.6 10.0-50.0 % Monocytes (%) (Auto) 9.4 0.0-12.0 % Eosinophils (%) (Auto) 2.9 0.0-7.0 % Basophils (%) (Auto) 0.9 0.0-2.0 % Neutrophils # (Auto) 5.5 1.6-8.6 10 ^3/uL Lymphocytes # (Auto) 1.4 0.4-5.4 10 ^3/uL Monocytes # (Auto) 0.7 0-1.3 10 ^3/uL Eosinophils # (Auto) 0.2 0-0.8 10 ^3/uL Basophils # (Auto) 0.1 0-0.2 10 ^3/uL Nucleated Red Blood Cells 0.1 % Prothrombin Time 11.6 9.3-11.8 sec Prothrombin Time INR 1.11 0.9-1.15 Activated Partial Thromboplast Time 27.8 24.5-34.5 SEC Sodium Level 141 136-145 mmol/L Potassium Level 3.9 3.5-5.1 mmol/L Chloride Level 107 98-107 mmol/L Carbon Dioxide Level 25 20-31 mmol/L Anion Gap 9 5-15 Blood Urea Nitrogen 28 H 9-23 mg/dL Creatinine 1.93 H 0.700-1.30 mg/dL Glomerular Filtration Rate Calc 39 >90 mL/min BUN/Creatinine Ratio 14.5 10.0-20.0 Serum Glucose 115 H 74-106 mg/dL Calcium Level 9.4 8.7-10.4 mg/dL Total Bilirubin 0.8 0.2-1.0 mg/dL Aspartate Amino Transferase (AST) 46 H 13-40 U/L Alanine Aminotransferase (ALT) 30 7-40 U/L Alkaline Phosphatase 88 46-116 U/L Ammonia 35 H 11-32 umol/L Total Protein 7.6 5.7-8.2 g/dL Albumin 4.3 3.2-4.8 g/dL Plasma/Serum Blood Alcohol 3.8 <10 mg/dL POC Glucose 122 H 70-106 mg/dl Assessment Acute metabolic encephalopathy, likely due to ischemic stroke Acute ischemic stroke Gout flare-up VAL Alcohol use disorder Umbilical hernia, fat containing, CT finding Distal colon diverticulosis, CT finding History of hypertension Cannabinoids use disorder Plan/Recommendation Agreement with your ongoing assessment and plan of care. Cardiology and Neurology care management deferred. Monitor daily labs to include renal function and electrolytes. Potassium replacement. Thiamine and Folic acid supplementation. ASA and Plavix. Lipitor. Cardiac diet. DVT prophylaxis. Additional plan as per the hospital course. Plan discussed with: Patient, Other (RN) CAMERON DE LA O DO Aug 12, 2024 19:52
[2024-08-13] VITALS (11 sets, daily range): BP systolic 110–198; BP diastolic 66–96; PULSE 55–83; RESP 18–20; TEMP 97.7–98.3; O2SAT 94–97
[2024-08-13 12:59] LABS: Triglycerides 149 mg/dL (< 150)
[2024-08-13 13:00] LABS: LDL Cholesterol 57 mg/dL (< 100)
[2024-08-13 13:01] LABS: Cholesterol 105 mg/dL (< 200); HDL Cholesterol 27 mg/dL (40-59)
[2024-08-13] MEDS ORDERED: ASPI-325 PO (13:08)
[2024-08-13] MEDS ORDERED: ATOR20TA50 PO (13:08)
[2024-08-13] MEDS ORDERED: ALL100T PO (13:08)
[2024-08-13] MEDS ORDERED: LISI20TA56 PO (13:08)
[2024-08-13] MEDS ORDERED: INDO-34 PO (13:08)
[2024-08-13] MEDS ORDERED: CLOP75TA70 PO (13:08)
--- NOTE | 2024-08-13 13:09 | DVHDS2 ---
Discharge Summary Date of Admission Aug 06, 2024 at 23:27 Date of Discharge: Aug 13, 2024 Labs/Diagnostic Data: Laboratory Results Test 08/12/24 04:57 08/10/24 21:30 08/10/24 10:20 08/07/24 11:16 White Blood Count 7.4 10^3/uL (4.4-10.8) Red Blood Count 4.84 10^6/uL (4.5-5.90) Hemoglobin 15.7 g/dL (13.5-17.5) Hematocrit 46.0 % (41.0-53.0) Mean Corpuscular Volume 95.0 fL (80.0-100.0) Mean Corpuscular Hemoglobin 32.5 pg (28.0-32.0) Mean Corpuscular Hemoglobin Concent 34.2 g/dL (32.0-36.0) Red Cell Distribution Width 13.2 % (11.8-14.3) Platelet Count 210 10^3/uL (140-450) Mean Platelet Volume 9.4 fL (6.9-10.8) Neutrophils (%) (Auto) 76.6 % (37.0-80.0) Lymphocytes (%) (Auto) 12.2 % (10.0-50.0) Monocytes (%) (Auto) 7.8 % (0.0-12.0) Eosinophils (%) (Auto) 2.7 % (0.0-7.0) Basophils (%) (Auto) 0.7 % (0.0-2.0) Neutrophils # (Auto) 5.7 10 ^3/uL (1.6-8.6) Lymphocytes # (Auto) 0.9 10 ^3/uL (0.4-5.4) Monocytes # (Auto) 0.6 10 ^3/uL (0-1.3) Eosinophils # (Auto) 0.2 10 ^3/uL (0-0.8) Basophils # (Auto) 0.1 10 ^3/uL (0-0.2) Nucleated Red Blood Cells 0.1 % Sodium Level 142 mmol/L (136-145) Potassium Level 2.8 mmol/L (3.5-5.1) Chloride Level 109 mmol/L (98-107) Carbon Dioxide Level 22 mmol/L (20-31) Anion Gap 11 (5-15) Blood Urea Nitrogen 25 mg/dL (9-23) Creatinine 1.69 mg/dL (0.700-1.30) Glomerular Filtration Rate Calc 45 mL/min (>90) BUN/Creatinine Ratio 14.8 (10.0-20.0) Serum Glucose 156 mg/dL (74-106) Calcium Level 9.6 mg/dL (8.7-10.4) Triglycerides Level 149 mg/dL (< 150) Cholesterol Level 105 mg/dL (< 200) LDL Cholesterol 57 mg/dL (< 100) HDL Cholesterol 27 mg/dL (40-59) Vitamin B12 Level 303 pg/mL (211-911) Thyroid Stimulating Hormone (TSH) 0.97 uIU/mL (0.55-4.78) Free Thyroxine (T4) Calculated 1.11 ng/dL (0.89-1.76) POC Glucose 108 mg/dl (70-106) Total Bilirubin 0.8 mg/dL (0.2-1.0) Aspartate Amino Transferase (AST) 28 U/L (13-40) Alanine Aminotransferase (ALT) 25 U/L (7-40) Alkaline Phosphatase 97 U/L (46-116) Total Protein 8.4 g/dL (5.7-8.2) Albumin 4.5 g/dL (3.2-4.8) Uric Acid 10.0 mg/dL (3.7-9.2) Test 08/07/24 06:45 08/07/24 04:06 08/06/24 17:16 08/06/24 14:11 Urine Color Yellow (Yellow) Urine Clarity Clear (Clear) Urine pH 6.0 (5.0-9.0) Urine Specific [place] 1.020 (1.001-1.035) Urine Protein 2+ (Negative) Urine Ketones Negative (Negative) Urine Blood Negative /uL (Negative) Urine Nitrite Negative (Negative) Urine Bilirubin Negative (Negative) Urine Urobilinogen Normal mg/dL (Negative) Urine Leukocyte Esterase Negative /uL (Negative) Urine RBC None seen /hpf (0 - 3) Urine Microscopic WBC /HPF (0-3) Urine Squamous Epithelial Cells Few /hpf (<5) Urine Bacteria None seen /hpf (None Seen) Urine Hyaline Casts Few /lpf (0 - 2) Urine Creatinine 187.10 mg/dL (30.0-125.0) Urine Sodium 16 mmol/L (40-220) Urine Glucose Normal mg/dL (Normal) Hemoglobin A1c 5.7 % A1C (<5.7) Phosphorus Level 3.8 mg/dL (2.4-5.1) Magnesium Level 2.3 mg/dL (1.6-2.6) Ammonia 14 umol/L (11-32) B-Type Natriuretic Peptide 65.17 pg/mL (0-100) Urine Opiates Screen Neg (NEGATIVE) Urine Fentanyl Screen Neg (NEGATIVE) Urine Barbiturates Screen Neg (NEGATIVE) Urine Phencyclidine Screen Neg (NEGATIVE) Urine Amphetamines Screen Neg (NEGATIVE) Urine Benzodiazepines Screen Neg (NEGATIVE) Urine Cocaine Screen Neg (NEGATIVE) Urine Cannabinoids Screen Pos (NEGATIVE) Prothrombin Time 11.6 sec (9.3-11.8) Prothrombin Time INR 1.11 (0.9-1.15) Activated Partial Thromboplast Time 27.8 SEC (24.5-34.5) Plasma/Serum Blood Alcohol 3.8 mg/dL (<10) Other Laboratory Tests 08/12/24 04:57 Brief Hx & Hospital Course: Acute gout 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 No focal, lateralized, or epileptiform features are noted Echo: 60% discharged to home with self care Condition at Discharge: Fair Final Diagnosis/Problems List see above Discharge Disposition: Home Discharge Instruct/Medications Diet: Cardiac 2g Na,low cholest Activity: No Restrictions, As Tolerated Discharge Statement: "Patient was advised to return to the ER or call 911 if any headaches, dizziness, shortness of breath, chest pain, abdominal pain, bleeding, fevers, or worsening of medical condition. Patient was counseled about treatment plan, medications, possible side effects, patientverbalized understanding. All questions were answered to the best of my ability. This discharge took greater then 30 minutes in planning, reviewing documentation, counseling the patient, and discussing with other team members." ASSESSMENT ASSESSMENT Assessment Date of Service: Aug 13, 2024 Billing Provider: VANDANA METCALF DO Common Visit Codes: [id number] DISCH DAY >30min VANDANA METCALF DO Aug 13, 2024 13:09
--- NOTE | 2024-08-13 14:33 | ECG ---
[facility] Test Date: 2024-08-11 Test Time: 05:42:25 Pat Name: JOAQUINA QUINTANA Department: Room: 0277T B Gender: M [employer]: AM : [id number] Requested By: KEVEN DONOVAN Order Number: [id number] Reading MD: Arnold Weems Measurements Intervals [place] Rate: 79 P: 52 AR: 159 QRS: 6 QRSD: 92 T: 105 QT: 422 QTc: 484 Interpretive Statements Sinus rhythm Ventricular premature complex Anterior infarct, possibly acute Baseline wander in lead(s) V1,V2,V3,V4 Electronically Signed On 08-14-2024 9:26:38 PST by Arnold Weems Please click the below link to view image of tracing.
[2024-08-13 15:46] LABS: Alanine Aminotransferase 17 U/L (7-40); Albumin 4.1 g/dL (3.2-4.8); Alkaline Phosphatase 88 U/L (46-116); Anion Gap 10 (5-15); Aspartate Aminotransferase 35 U/L (13-40); BUN/Creatinine Ratio 12.6 (10.0-20.0); Blood Urea Nitrogen 21 mg/dL (9-23); Calcium 9.4 mg/dL (8.7-10.4); Carbon Dioxide 21 mmol/L (20-31); Potassium 3.6 mmol/L (3.5-5.1); Sodium 141 mmol/L (136-145)
[2024-08-13 15:47] LABS: Bilirubin, Total 0.5 mg/dL (0.2-1.0); Chloride 110 mmol/L (98-107); Glucose 119 mg/dL (74-106); Total Protein 7.3 g/dL (5.7-8.2)
[2024-08-13 15:56] LABS: Uric Acid 9.2 mg/dL (3.7-9.2)
--- NOTE | 2024-08-13 20:18 | DVHPN2 ---
Progress Note - Dictate Date Seen: Aug 13, 2024 Medical Necessity Reason Pt with a Central, PICC or Fol: No Subjective Patient seen and evaluated in follow up. No acute events overnight. No new complaints reported. Creatinine 1.67. Discharge planning in progress. Possible SNF placement. vital signs Vital Sign Date Time Temp Pulse Resp B/P (MAP) Pulse Ox O2 Delivery O2 Flow Rate FiO2 08/13/24 17:08 98.1 73 18 191/96 (127) 97 98.1 08/13/24 08:00 Room Air* 0 21 Total Intake and Output 08/12/24 08/12/24 08/13/24 15:00 23:00 07:00 Intake Total 50.2 ml 300 ml 850 ml Balance 50.2 ml 300 ml 850 ml medications Current Medications Medications Dose Ordered Sig/Allie Route Start Time Stop Time Status Last Admin Dose Admin Folic Acid 1 mg/ Dextrose 50.2 ml @ 200.8 mls/ hr DAILY INJ 08/08/24 10:00 08/13/24 09:55 200.8 MLS/HR Colchicine 0.6 mg Q12HR PO 08/07/24 22:00 08/13/24 09:39 0.6 MG Lorazepam 1 mg Q2HPRN PRN IV 08/07/24 02:45 Aspirin 81 mg DAILY PO 08/07/24 10:00 08/13/24 09:38 81 MG Enoxaparin Sodium 40 mg DAILY SC 08/08/24 10:00 08/13/24 09:39 40 MG Atorvastatin Calcium 40 mg HS PO 08/07/24 11:00 08/12/24 21:11 40 MG Clopidogrel Bisulfate 75 mg DAILY PO 08/07/24 22:00 08/28/24 22:00 08/13/24 09:39 75 MG Lorazepam 1 mg ONCE PRN IV 08/07/24 11:00 Indomethacin 50 mg TID PRN PO 08/07/24 11:15 Hydralazine HCl 10 mg Q6HP PRN IV 08/07/24 11:30 08/09/24 21:35 10 MG Lisinopril 40 mg DAILY PO 08/10/24 10:00 08/13/24 09:38 40 MG Allopurinol 100 mg DAILY PO 08/10/24 10:00 08/13/24 09:39 100 MG Loperamide HCl 2 mg PRN PRN PO 08/11/24 22:30 08/12/24 11:05 2 MG Ondansetron HCl 4 mg Q4HPRN PRN IV 08/12/24 11:00 08/12/24 11:04 4 MG objective Vitals and nursing notes reviewed. General Appearance: In no acute distress. Cooperative. Morbidly obese HEENT: Atraumatic, PERRLA, EOMI, Mucous membrane moist/pink Pulmonary/Respiratory: Clear, bilateral breaths sounds. Cardiovascular/Chest: Regular rate and rhythm. Abdominal Exam: Normal bowel sounds. Lower extremities: 2+ pitting edema Neuro/Mental Status: A/OX4, coherent. Thoughts/Psych: Normal thought pattern. Appropriate mood and affect. Good judgment and insight. Appearance: No acute distress. Skin Exam: Discolored bilateral lower extremities laboratory and microbiology Laboratory Tests 08/13/24 15:00 08/12/24 04:57 Test 08/13/24 15:00 Range/Units Serum Glucose 119 H 74-106 mg/dL Problem List Acute metabolic encephalopathy, likely due to ischemic stroke Acute ischemic stroke Gout flare-up VAL Alcohol use disorder Umbilical hernia, fat containing, CT finding Distal colon diverticulosis, CT finding History of hypertension Cannabinoids use disorder Assessment/Plan Agree with current supportive medical care. Cardiology and Neurology care management deferred. Monitor daily labs to include renal function and electrolytes. Electrolyte replacement prn. ASA and Plavix. Lipitor. Cardiac diet. DVT prophylaxis. Additional plan as per the hospital course. Plan discussed with: Patient, Other (RN) CAMERON DE LA O DO Aug 13, 2024 20:18
[2024-08-14 05:00] VITALS: BP 168/85; PULSE 73; RESP 17; TEMP 98.1; O2SAT 92
[2024-08-14 08:00] VITALS: PULSE 72; RESP 18; O2SAT 95
[2024-08-14 09:00] VITALS: BP 135/78; PULSE 64; RESP 18; TEMP 98.3; O2SAT 97
--- NOTE | 2024-08-14 14:09 | DVHPN2 ---
Reviewed: Care Plan, H&P, Labs, Medications, Previous Orders, Radiology Changes from previous H/P or p: No Changes General: Per HPI Objective Vitals Vital Signs Date Time Temp Pulse Resp B/P (MAP) Pulse Ox O2 Delivery O2 Flow Rate FiO2 08/14/24 09:07 135/78 08/14/24 09:00 98.3 64 18 97 98.3 08/14/24 08:00 Room Air* 0 21 Intake/Output Intake and Output 08/14/24 07:00 Intake Total 1341.2 ml Output Total 1250 ml Balance 91.2 ml Intake Oral 1291 ml IV Total 50.2 ml Output Urine Total 1250 ml # Bowel Movements 2 General Appearance: Alert, Oriented X3, Cooperative, No acute distress HEENT: Atraumatic, PERRLA, EOMI, Mucous membr. moist/pink Neck: Supple Lungs: Clear to auscultation, Normal air movement Cardiovascular: Regular rate, Normal S1, Normal S2, No murmurs, Gallops, Rubs Abdomen: Normal bowel sounds, Soft, No tenderness Neuro: Cranial nerves 3-12 NL Psych/Mental Status: Mental status NL Laboratory Results Laboratory Tests 08/12/24 04:57 08/13/24 15:00 Chemistry Test 08/13/24 15:00 Albumin 4.1 g/dL (3.2-4.8) Calcium Level 9.4 mg/dL (8.7-10.4) Total Protein 7.3 g/dL (5.7-8.2) LFT Test 08/13/24 15:00 Alanine Aminotransferase (ALT) 17 U/L (7-40) Alkaline Phosphatase 88 U/L (46-116) Aspartate Amino Transferase (AST) 35 U/L (13-40) Total Bilirubin 0.5 mg/dL (0.2-1.0) Urinalysis Test 08/07/24 06:45 Urine Color Yellow (Yellow) Urine Clarity Clear (Clear) Urine pH 6.0 (5.0-9.0) Urine Specific [place] 1.020 (1.001-1.035) Urine Protein 2+ (Negative) H Urine Ketones Negative (Negative) Urine Blood Negative /uL (Negative) Urine Nitrite Negative (Negative) Urine Bilirubin Negative (Negative) Urine Urobilinogen Normal mg/dL (Negative) Urine Leukocyte Esterase Negative /uL (Negative) Urine RBC None seen /hpf (0 - 3) Urine Microscopic WBC /HPF (0-3) Urine Squamous Epithelial Cells Few /hpf (<5) Urine Bacteria None seen /hpf (None Seen) Urine Hyaline Casts Few /lpf (0 - 2) Urine Creatinine 187.10 mg/dL (30.0-125.0) H Urine Sodium 16 mmol/L (40-220) L Urine Glucose Normal mg/dL (Normal) Labs and/or images reviewed: Labs reviewed by me, Image(s) reviewed by me Assessment/Plan Assessment/Plan Acute gout 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 No focal, lateralized, or epileptiform features are noted Echo: 60% PLAN Continuing current management. Continuing with colchicine and indomethacin. Aspirin and Plavix Continuing Lipitor Continuing with allopurinol Continuing with metoprolol and lisinopril pending discharge today This medical document was created using an electronic medical record system with [employer] direct computerized dictation system. Although this document has been carefully reviewed, there may still be some phonetic and typographical errors. These areas are purely typographical due to imperfections of the software programs, and do not reflect any compromise in the patient's medical care. Plan discussed with: Patient Date of Service: Aug 14, 2024 Billing Provider: VANDANA METCALF DO Common Visit Codes: [id number] INP/OBS CARE(HIGH) VANDANA METCALF DO Aug 14, 2024 14:09
--- NOTE | 2024-08-14 20:30 | DVHPN2 ---
Progress Note - Dictate Date Seen: Aug 14, 2024 Medical Necessity Reason Pt with a Central, PICC or Fol: No Subjective Patient was seen and evaluated in follow up. No acute events overnight. No complaints. Patient is being arranged for discharge home. Insurance does not cover SNF/HHS yet. vital signs Vital Sign Date Time Temp Pulse Resp B/P (MAP) Pulse Ox O2 Delivery O2 Flow Rate FiO2 08/14/24 09:07 135/78 08/14/24 09:00 98.3 64 18 97 98.3 08/14/24 08:00 Room Air* 0 21 Total Intake and Output 08/13/24 08/13/24 08/14/24 15:00 23:00 07:00 Intake Total 50.2 ml 700 ml 591 ml Output Total 600 ml 650 ml Balance 50.2 ml 100 ml -59 ml objective Vitals and nursing notes reviewed. General Appearance: In no acute distress. Cooperative. Morbidly obese HEENT: Atraumatic, PERRLA, EOMI, Mucous membrane moist/pink Pulmonary/Respiratory: Clear, bilateral breaths sounds. Cardiovascular/Chest: Regular rate and rhythm. Abdominal Exam: Normal bowel sounds. Lower extremities: 2+ pitting edema Neuro/Mental Status: A/OX4, coherent. Thoughts/Psych: Normal thought pattern. Appropriate mood and affect. Good judgment and insight. Appearance: No acute distress. Skin Exam: Discolored bilateral lower extremities laboratory and microbiology Laboratory Tests 08/13/24 15:00 08/12/24 04:57 Test 08/13/24 15:00 Range/Units Serum Glucose 119 H 74-106 mg/dL Problem List Acute metabolic encephalopathy, likely due to ischemic stroke Acute ischemic stroke Gout flare-up VAL Alcohol use disorder Umbilical hernia, fat containing, CT finding Distal colon diverticulosis, CT finding History of hypertension Cannabinoids use disorder Assessment/Plan DC planning. Cleared for discharge from Nephrology standpoint with outpatient follow up recommended. Plan discussed with: Patient, Other (RN) CAMERON DE LA O DO Aug 14, 2024 20:30
== END 2024-08-14 10:40 | disposition home or self-care (01) | DRG 45 ==
LOC: ER 13:20 → OVERFLOW 23:27 → WEST WING 08-07 18:09 → TELE-WESTW 08-07 19:44 → TELE 08-12 15:33 → WEST WING 08-12 15:49 → OVERFLOW 08-13 13:29 → TELE-WESTW 08-13 13:55
PROVIDERS: ADMIT Internal Medicine; ATTEND Internal Medicine
DX: I63.9 Cerebral infarction, unspecified (principal); N17.0 Acute kidney failure with tubular necrosis; G93.41 Metabolic encephalopathy; E72.20 Disorder of urea cycle metabolism, unspecified; E87.6 Hypokalemia; G40.209 Localization-related (focal) (partial) symptomatic epilepsy and epileptic syndromes with complex partial seizures, not intractable, without status epilepticus; E66.01 Morbid (severe) obesity due to excess calories; Z68.41 Body mass index [BMI] 40.0-44.9, adult; M17.11 Unilateral primary osteoarthritis, right knee; I16.0 Hypertensive urgency; K42.9 Umbilical hernia without obstruction or gangrene; F10.26 Alcohol dependence with alcohol-induced persisting amnestic disorder; I11.9 Hypertensive heart disease without heart failure; E51.2 Wernicke's encephalopathy; K57.30 Diverticulosis of large intestine without perforation or abscess without bleeding; Z83.3 Family history of diabetes mellitus; Z80.0 Family history of malignant neoplasm of digestive organs; Z79.899 Other long term (current) drug therapy; Z79.82 Long term (current) use of aspirin; Z79.02 Long term (current) use of antithrombotics/antiplatelets
CPT/HCPCS: 36415; 70450; 70551; 71045; 74176; 80048; 80053; 80061; 80307; 80320; 81001; 82140; 82570; 82607; 82962; 83036; 83735; 83880; 84100; 84300; 84439; 84443; 84550; 85025; 85610; 85730; 93005; 93017; 93306; 93886; 93970; 95819; 97110; 97116; 97163; 99291; G0378; J2405; J7060